=== PATIENT | male | born 1955 | race Caucasian/White ===

== ENCOUNTER 2018-08-26 11:02 | Day surgery (SDC) | payer BC ==
[~2018-08-26] VITALS: Ht 167.6 cm; Wt 79.8 kg
[2018-08-26] VITALS (9 sets, daily range): BP systolic 109–152; BP diastolic 71–88
[~2018-08-26 11:02] MED LIST: ceFAZolin sod 1 GM in NS 55 ML IVPB ONE
[2018-08-26] MEDS ORDERED: TAMSULOSIN HCL0.4 MG ORAL (12:00)
[2018-08-26] MEDS ORDERED: NORCO 5-325 TA1 EACH ORAL (12:01)
--- NOTE | 2018-08-26 12:53 | Pre-Procedure Note/Attestation ---
Pre-Procedure Note/Attestation Complete Prior to Procedure Planned Procedure: right Procedure Narrative: eswl rirs right cystolytholopaxy Indications for Procedure Pre-Operative Diagnosis: right ureteral stone and bladder stones Attestation I attest that I discussed the nature of the procedure; its benefits; risks and complications; and alternatives (and the risks and benefits of such alternatives ), prior to the procedure, with the patient (or the patient's legal medical service representative). I attest that, if there was a reasonable possibility of needing a blood transfusion, the patient (or the patient's legal medical service representative) was given the [facility] standardized written summary, pursuant to the [place] Blood Safety Act ([place] Health and Safety Code # 1645, as amended). I attest that I re-evaluated the patient just prior to the surgery and that there has been no change in the patient's H&P, except as documented below: Baljit Boggs MD Aug 26, 2018 12:53
[2018-08-26] MEDS ORDERED: NS Irrig 1000ml ONE (13:00)
[2018-08-26] MEDS ORDERED: Sterile Water For Irrig 2000ml IRRIG ONE (13:00)
[2018-08-26] MEDS ORDERED: Sterile Water Irrig 1000ml IRRIG ONE (13:00)
[2018-08-26] MEDS ORDERED: LR 1000ml ONE (13:00)
[2018-08-26] MEDS ORDERED: Propofol 200mg/20ml IV ONE (13:00)
[2018-08-26] MEDS ORDERED: Midazolam 2mg/2ml Inj ONE (13:10)
[2018-08-26] MEDS ORDERED: fentaNYL 100 mcg/2 mL IV ONE (13:10)
[2018-08-26] MEDS ORDERED: cefOXitin 1gm Inj ONE (13:27)
[2018-08-26] MEDS ORDERED: Iothalamate Meglumine 60% 30ML INJ ONE (13:27)
[2018-08-26] MEDS ORDERED: NS Irrig 4000ml IRRIG ONE (14:14)
[2018-08-26] MEDS ORDERED: LR 1000ml 1,000 ML IVLG SCH (14:19)
--- NOTE | 2018-08-26 14:19 | Anethesia Preoperative Eval ---
Anesthesia Pre-op PMH/ROS General Date of Evaluation: Aug 26, 2018 Time of Evaluation: 13:20 Anesthesiologist: Kimi ASA Score: ASA 2 Mallampati Score Class I : Soft palate, uvula, fauces, pillars visible Class II: Soft palate, uvula, fauces visible Class III: Soft palate, base of uvula visible Class IV: Only hard plate visible Mallampati Classification: Class II Surgeon: Flakita Diagnosis: Kidney and bladder stones Surgical Procedure: ECWL and laser lithotrypsy Anesthesia History: none Family History: no anesthesia problems Allergies: Coded Allergies: No Known Allergies (Unverified , 08/25/18) Medications: see eMAR Past Medical History Cardiovascular: Reports: HTN - borderline; Denies: CAD, [place], valve dz, arrhythmia, other Pulmonary: Denies: asthma, COPD, ERIS, other Gastrointestinal/Genitourinary: Reports: GERD, CRI - Cr.1,4, other - kidney stones BPH; Denies: ESRD Neurologic/Psychiatric: Reports: depression/anxiety; Denies: dementia, CVA, TIA, other Endocrine: Reports: DM - borderline; Denies: hypothyroidism, steroids, other HEENT: Reports: cataract (L), cataract (R) - s/p Sx Hematology/Immune: Reports: anemia - mild Musculoskeletal/Integumentary: Denies: OA, RA, DJD, DDD, edema, other PMH Narrative: as above PSxH Narrative: ESWL, appendectomy Anesthesia Pre-op Phys. Exam Physician Exam Last Vital Signs Date Time Temp Pulse Resp B/P (MAP) Pulse Ox O2 Delivery O2 Flow Rate FiO2 08/26/18 12:18 Room Air 08/26/18 12:09 99.0 66 20 133/80 (97) 97 99.0 Constitutional: NAD Neurologic: CN 2-12 intact Cardiovascular: RRR, no M/R/G Respiratory: CTA Gastrointestinal: S/NT/ND Airway Exam Mallampati Score: Class II MO: limited Neck: stiff ROM: limited Teeth: missing Dentures: no upper, no lower Anesthesia Pre-op A/P Labs see chart Studies Pre-op Studies: EKG - SR Risk Assessment & Plan Assessment: ASA 2 Plan: GA with LMA Status Change Before Surgery: No Pre-Antibiotics Drug: Cefoxitin 1 gr. Given Within 1 Hr of Incision: Yes Time Given: 14:04 Mitch Bolden MD Aug 26, 2018 14:19
[2018-08-26] MEDS ORDERED: DiphenhydrAMINE 50mg/ml Inj IVP PRN (14:30)
[2018-08-26] MEDS ORDERED: Meperidine 50mg/ml Inj(FOR RIGORS ONLY) IV PRN (14:30)
[2018-08-26] MEDS ORDERED: Ketorolac 30mg Inj IV PRN (14:30)
[2018-08-26] MEDS ORDERED: fentaNYL 100 mcg/2 mL IV PRN (14:30)
--- NOTE | 2018-08-26 14:42 | Brief Operative Note ---
Immediate Post Operative Note Operative Note Pre-op Diagnosis: right ureteral stone and bladder stones Procedure: ESWL RIRS right Cystolopaxy Post-op Diagnosis: same Surgeon: ken boggs Anesthesia: general Specimen: yes Complications: none Condition: stable Fluids: 1000 Estimated Blood Loss: minimal Implant(s) used?: No Baljit Boggs MD Aug 26, 2018 14:41
[2018-08-26] MEDS ORDERED: Tylenol #3 tab (300mg/30mg) ORAL PRN (14:45)
[2018-08-26] MEDS ORDERED: Norco 5mg/325mg tab ORAL PRN (14:45)
[2018-08-26] MEDS ORDERED: D5 1/2NS 1,000 ML IV SCH (14:45)
[2018-08-26] MEDS ORDERED: HYDROmorphone 1mg/ml Carpuject SUBQ PRN (14:45)
--- NOTE | 2018-08-26 14:58 | Immediate Post-Op Evaluation ---
Immediate Post-Op Evalulation Immediate Post-Op Evalulation Procedure: Laser lithotrypsy of L kidney and bladder stones stent placement Date of Evaluation: Aug 26, 2018 Time of Evaluation: 14:57 IV Fluids: 1200 Blood Products: NONE Estimated Blood Loss: min Urinary Output: n/a Blood Pressure Systolic: 107 Blood Pressure Diastolic: 72 Pulse Rate: 74 Respiratory Rate: 20 O2 Sat by Pulse Oximetry: 98 Temperature (Fahrenheit): 98.6 Pain Score (1-10): 2 Nausea: No Vomiting: No Complications none Patient Status: reacts, patent, none Hydration Status: adequate Mitch Bolden MD Aug 26, 2018 14:58
--- NOTE | 2018-08-26 15:54 | 48 Hour Post Anesthesia Eval ---
Post Anesthesia Evaluation Procedure: Laser lithotrypsy of L kidney and bladder stones, stent placement Date of Evaluation: Aug 26, 2018 Time of Evaluation: 15:53 Blood Pressure Systolic: 136 0: 72 Pulse Rate: 68 Respiratory Rate: 20 Temperature (Fahrenheit): 97.5 O2 Sat by Pulse Oximetry: 98 Airway: patent Nausea: No Vomiting: No Pain Intensity: 1 Hydration Status: adequate Cardiopulmonary Status: stable Mental Status/LOC: patient returned to baseline Follow-up Care/Observations: n/a Post-Anesthesia Complications: none Follow-up care needed: ready to discharge Mitch Bolden MD Aug 26, 2018 15:54
--- NOTE | 2018-09-01 03:45 | Operative Note - Dictated ---
DATE OF OPERATION: 08/26/2018 PREOPERATIVE DIAGNOSIS: Multiple bladder stones and right ureteral stone. POSTOPERATIVE DIAGNOSIS: Multiple bladder stones and right ureteral stone. OPERATIONS: 1. Cystolitholapaxy with laser. 2. Retrograde intrarenal surgery combined with extracorporeal shock wave lithotripsy of the right mid ureteral stone. 3. Double-J stent placement. OPERATED BY: Baljit Boggs M.D. ANESTHESIA: General. FINDINGS: Multiple bladder stones and mid right ureteral stone. INDICATIONS FOR SURGERY: The patient had hematuria and flank pain with severe hydronephrosis. He was found to have multiple bladder stones as well as mid right ureteral stone. Treatment options were explained to him in great length including all potential complications and he signed the consent. DESCRIPTION OF PROCEDURE: He was brought to the operating room, placed in lithotomy position, and prepped and draped in the standard fashion. Under general anesthesia, cystoscope was introduced into the bladder. Multiple stones from 2 to 3 cm each were treated with 1000 micron laser fiber, the stones were fragmented into small pieces and evacuated with the [employer] evacuator. After bladder was completely cleaned, the ureteroscope was introduced into the right ureter and carried all the way to the mid ureter where a stone was found. Using a 260 micron fiber, the stone was fragmented into small pieces and then removed for pathologic examination. Further inspection of the kidney showed no evidence of residual stones. A double-J stent 24 x 6-[place] was placed and left indwelling. The patient tolerated the procedure well. Degroot catheter was replaced. The patient received intravenous antibiotics. Sponge count and instrument count was correct. Baljit Boggs M.D. DR: KATIE JOB#: [id number] CC:
== END 2018-08-26 16:20 | disposition home or self-care (01) ==
LOC: SUR 11:02
DX: N21.0 Calculus in bladder (principal); N20.1 Calculus of ureter; E11.22 Type 2 diabetes mellitus with diabetic chronic kidney disease; I12.9 Hypertensive chronic kidney disease with stage 1 through stage 4 chronic kidney disease, or unspecified chronic kidney disease; N18.9 Chronic kidney disease, unspecified; N40.0 Benign prostatic hyperplasia without lower urinary tract symptoms; K21.9 Gastro-esophageal reflux disease without esophagitis; F32.9 Major depressive disorder, single episode, unspecified; F41.9 Anxiety disorder, unspecified; D64.9 Anemia, unspecified; Z87.442 Personal history of urinary calculi
CPT/HCPCS: 52317; 52356; J0694; J1940; J2250; J2704; J3010; Q9961

== ENCOUNTER 2019-05-19 08:41 | Inpatient (IN) | payer BC, MEDICARE ==
[2019-05-19] VITALS (12 sets, daily range): BP systolic 133–176; BP diastolic 74–97
[~2019-05-19] VITALS: Ht 167.6 cm; Wt 84.8 kg
[~2019-05-19 08:41] MED LIST changes: +NORCO 5-325 TA1 EACH ORAL; +TAMSULOSIN HCL0.4 MG ORAL
[2019-05-19] MEDS ORDERED: LR 1000ml 1,000 ML IVLG SCH (09:57)
--- NOTE | 2019-05-19 09:57 | Anethesia Preoperative Eval ---
Anesthesia Pre-op PMH/ROS General Date of Evaluation: May 19, 2019 Anesthesiologist: Caleb ASA Score: ASA 2 Mallampati Score Class I : Soft palate, uvula, fauces, pillars visible Class II: Soft palate, uvula, fauces visible Class III: Soft palate, base of uvula visible Class IV: Only hard plate visible Mallampati Classification: Class II Surgeon: Celio Diagnosis: BPH Surgical Procedure: TURP Anesthesia History: none Family History: no anesthesia problems Allergies: Coded Allergies: No Known Allergies (Unverified , 08/25/18) Medications: see eMAR Patient NPO?: Yes NPO Date: May 18, 2019 NPO Time: 1900 Past Medical History Cardiovascular: Denies: HTN, CAD, [place], valve dz, arrhythmia, other Pulmonary: Denies: asthma, COPD, ERIS, other Gastrointestinal/Genitourinary: Reports: other - BPH; Denies: GERD, CRI, ESRD Neurologic/Psychiatric: Denies: dementia, CVA, depression/anxiety, TIA, other Endocrine: Denies: DM, hypothyroidism, steroids, other HEENT: Denies: cataract (L), cataract (R), glaucoma, [place] (L), [place] (R), other Hematology/Immune: Denies: anemia, DVT, bleeding disorder, other Musculoskeletal/Integumentary: Denies: OA, RA, DJD, DDD, edema, other PSxH Narrative: septoplasty, T&A, lap appy, cystoscoy, left knee sx, right cataract Anesthesia Pre-op Phys. Exam Physician Exam Last Vital Signs Date Time Temp Pulse Resp B/P (MAP) Pulse Ox O2 Delivery O2 Flow Rate FiO2 05/19/19 09:52 98.2 62 18 144/87 (106) 97 Constitutional: NAD Cardiovascular: RRR Respiratory: CTA Airway Exam Mallampati Score: Class II MO: full ROM: full Anesthesia Pre-op A/P Labs see chart Studies Pre-op Studies: EKG - sr Risk Assessment & Plan Assessment: ASA II Plan: GA Status Change Before Surgery: No Pre-Antibiotics Drug: Juju Fair MD May 19, 2019 09:57
[2019-05-19] MEDS ORDERED: LORazepam Inj 2mg/ml 1ml IV PRN (10:00)
[2019-05-19] MEDS ORDERED: Hydromorphone 0.5mg/0.5ml inj IVP PRN (10:00)
[2019-05-19] MEDS ORDERED: Midazolam 2mg/2ml Inj IVP PRN (10:00)
[2019-05-19] MEDS ORDERED: Ketorolac 30mg Inj IV PRN (10:00)
[2019-05-19] MEDS ORDERED: fentaNYL 100 mcg/2 mL IV PRN (10:00)
[2019-05-19] MEDS ORDERED: DiphenhydrAMINE 50mg/ml Inj IVP PRN (10:00)
[2019-05-19] MEDS ORDERED: Metoclopramide 10mg/2ml Inj IVP PRN (10:00)
[2019-05-19] MEDS ORDERED: Sterile Water Irrig 1000ml IRRIG ONE (10:30)
[2019-05-19] MEDS ORDERED: NS Irrig 1000ml ONE (10:30)
[2019-05-19] MEDS ORDERED: LR 1000ml ONE (10:30)
--- NOTE | 2019-05-19 10:32 | Pre-Procedure Note/Attestation ---
Pre-Procedure Note/Attestation Complete Prior to Procedure Planned Procedure: not applicable Procedure Narrative: TURP CYstolopaxy Indications for Procedure Pre-Operative Diagnosis: bladder stones BPH Attestation I attest that I discussed the nature of the procedure; its benefits; risks and complications; and alternatives (and the risks and benefits of such alternatives ), prior to the procedure, with the patient (or the patient's legal parts sales representative). I attest that, if there was a reasonable possibility of needing a blood transfusion, the patient (or the patient's legal parts sales representative) was given the [facility] standardized written summary, pursuant to the [place] Blood Safety Act ([place] Health and Safety Code # 1645, as amended). I attest that I re-evaluated the patient just prior to the surgery and that there has been no change in the patient's H&P, except as documented below: Baljit Boggs MD May 19, 2019 10:32
[2019-05-19] MEDS ORDERED: Vit D (10:38)
[2019-05-19] MEDS ORDERED: Midazolam 2mg/2ml Inj ONE (10:49)
[2019-05-19] MEDS ORDERED: fentaNYL 100 mcg/2 mL IV ONE (10:49)
[2019-05-19] MEDS ORDERED: Lidocaine 1% MPF 10mg/ml 5ml ONE (10:49)
[2019-05-19] MEDS ORDERED: Propofol 200mg/20ml IV ONE (10:49)
[2019-05-19] MEDS ORDERED: NS Irrig 4000ml IRRIG ONE ×6 (10:55→12:00)
[2019-05-19] MEDS ORDERED: HYDROmorphone 1mg/ml Carpuject IVP PRN (12:45)
[2019-05-19] MEDS ORDERED: HYDROcodone/Acetamin 5/325 tab ORAL PRN (12:45)
--- NOTE | 2019-05-19 12:47 | Brief Operative Note ---
Immediate Post Operative Note Operative Note Pre-op Diagnosis: bladder stones BPH Procedure: TURP cystolopaxy Post-op Diagnosis: same Post-op Diagnosis: same as pre-op Surgeon: Jarred Boggs Anesthesia: general Specimen: yes Complications: none Fluids: 1000 Estimated Blood Loss: minimal Implant(s) used?: No Baljit Boggs MD May 19, 2019 12:47
--- NOTE | 2019-05-19 12:52 | Immediate Post-Op Evaluation ---
Immediate Post-Op Evalulation Immediate Post-Op Evalulation Procedure: TURP and cystolitholopexy Date of Evaluation: May 19, 2019 Time of Evaluation: 12:54 IV Fluids: 800 Blood Products: 0 Estimated Blood Loss: 50 Urinary Output: 0 Blood Pressure Systolic: 131 Blood Pressure Diastolic: 81 Pulse Rate: 60 Respiratory Rate: 16 O2 Sat by Pulse Oximetry: 100 Temperature (Fahrenheit): 97 Pain Score (1-10): 0 Nausea: No Vomiting: No Complications 0 Patient Status: awake, reacts, patent, none Hydration Status: adequate Drug: Ancef 2g Given Within 1 Hr of Incision: Yes Juju Glynn MD May 19, 2019 12:52
[2019-05-19 14:07] LABS: BASOPHILS % (AUTO) 0.8 % (0.0-2.0); EOSINOPHILS % (AUTO) 1.5 % (0.0-3.0); HEMATOCRIT 36.8 % (42.0-52.0); HEMOGLOBIN 12.6 G/DL (14.2-18.0); LYMPHOCYTES % (AUTO) 23.9 % (20.0-45.0); MEAN CORPUSCULAR VOLUME 91 FL (80-99); MONOCYTES % (AUTO) 7.5 % (1.0-10.0); NEUTROPHILS % (AUTO) 66.4 % (45.0-75.0); PLATELET COUNT 183 K/UL (150-450); RED BLOOD COUNT 4.05 M/UL (4.70-6.10); RED CELL DISTRIBUTION WIDTH 11.3 % (11.6-14.8); WHITE BLOOD COUNT 10.6 K/UL (4.8-10.8)
--- NOTE | 2019-05-19 14:10 | NUR ---
NURSE NOTES: REC'D FROM PACU SP TURP,CYSTOLITHOLIPAXY. AWKE A/LAERT. /VS TAKEN. NO C/O PAIN. WITH HUI CATHETER WITH CONTINUOUS BLADDER IRRIGATION. OUTPUT PINK COLOR . NO CLOTS. IN NO APPARENT DISTRESS.
[2019-05-19 14:17] LABS: ANION GAP 11 mmol/L (5-15); BLOOD UREA NITROGEN 13 mg/dL (7-18); CALCIUM 8.4 MG/DL (8.5-10.1); CARBON DIOXIDE 26 MMOL/L (21-32); CHLORIDE 105 MMOL/L (98-107); CREATININE 1.1 MG/DL (0.55-1.30); POTASSIUM 3.9 MMOL/L (3.5-5.1); SODIUM 142 MMOL/L (136-145)
[2019-05-19] MEDS: D5 1/2NS w/KCl 20mEq 1,000 ML IV SCH (15:30)
[2019-05-19] MEDS: Docusate 100mg cap ORAL SCH ×2 (17:21→19:35)
[2019-05-19] MEDS ORDERED: Tubing IV Secondary IV ONE (17:45)
--- NOTE | 2019-05-19 18:59 | NUR ---
NURSE NOTES: QUIET IN BED. STILL SLIGHTLY NAUSEATED, IN NO ACUTE DISTRESS.
--- NOTE | 2019-05-19 19:36 | NUR ---
HAND-OFF: Report given TatyanaKaterin URIOSTEGUI RN.
--- NOTE | 2019-05-19 20:00 | NUR ---
NURSE NOTES: Received a report from ARTURO Burger. Pt is awake and alert. Breathing is even and non labored. Lung sound is clear. No acute distress noted. No pain noted at this time. On bladder irrigation with 4L NS vis 24Fr. knott catheter and pinkish urine drained. Nausea sense decreased and had 1 cup of Jello. Leave call light within reach. Bed is locked and lowest position. Will continue to monitor.
[2019-05-19] MEDS ORDERED: Tamsulosin 0.4mg cap ORAL SCH (21:00)
[2019-05-20] VITALS: BP 116/67
[2019-05-20] MEDS: D5 1/2NS w/KCl 20mEq 1,000 ML IV SCH ×3 (01:35→11:44)
--- NOTE | 2019-05-20 02:30 | Consultation ---
DATE OF CONSULTATION: 05/19/2019 INTERNAL MEDICINE CONSULTATION CONSULTING PHYSICIAN: Trent Bolanos M.D. HISTORY OF PRESENT ILLNESS: This is a 64-year-old male who has undergone prostatectomy by Dr. Baljit Boggs this afternoon. At this point, he is feeling better. He has a Degroot catheter in place and hematuria was noted. He is also nauseous this morning. The patient has a past history notable for prostatic problems, for which he has today undergone surgery. PAST MEDICAL HISTORY: Notable for BPH and nephrolithiasis. PREVIOUS SURGERIES: Appendectomy, cataract surgery, and previous urolithiasis. CURRENT MEDICATIONS: Reviewed and reconciled in the chart. ALLERGIES: None. REVIEW OF SYSTEMS: Denies any headaches, hematemesis, melena, hematochezia . PHYSICAL EXAMINATION: HEENT: Unremarkable. LUNGS: Clear breath sounds bilaterally. ABDOMEN: Soft. EXTREMITIES: There is no edema. NEUROLOGIC: Nonfocal. LABORATORY DATA: Laboratory testing currently is unremarkable. IMPRESSION: 1. Status post TURP. 2. Previous appendectomy. 3. History of urolithiasis. DISCUSSION: Admit to the hospital. We will leave Degroot in place. . DVT prophylaxis. Pain control. Antiemetics. Discharge planning in the next 24 to 48 hours depending on status of hematuria. We will follow carefully. Trent Bolanos M.D. DR: BRANDY JOB#: [id number] CC:
[2019-05-20 04:00] VITALS: BP 117/68
[2019-05-20 06:16] LABS: BASOPHILS % (AUTO) 0.3 % (0.0-2.0); EOSINOPHILS % (AUTO) 0.1 % (0.0-3.0); HEMATOCRIT 36.4 % (42.0-52.0); HEMOGLOBIN 12.6 G/DL (14.2-18.0); LYMPHOCYTES % (AUTO) 14.2 % (20.0-45.0); MEAN CORPUSCULAR VOLUME 90 FL (80-99); MONOCYTES % (AUTO) 8.9 % (1.0-10.0); NEUTROPHILS % (AUTO) 76.5 % (45.0-75.0); PLATELET COUNT 183 K/UL (150-450); RED BLOOD COUNT 4.05 M/UL (4.70-6.10); RED CELL DISTRIBUTION WIDTH 11.2 % (11.6-14.8); WHITE BLOOD COUNT 11.2 K/UL (4.8-10.8)
[2019-05-20 06:36] LABS: ANION GAP 9 mmol/L (5-15); BLOOD UREA NITROGEN 12 mg/dL (7-18); CALCIUM 8.5 MG/DL (8.5-10.1); CARBON DIOXIDE 26 MMOL/L (21-32); CHLORIDE 105 MMOL/L (98-107); CREATININE 1.1 MG/DL (0.55-1.30); POTASSIUM 3.9 MMOL/L (3.5-5.1); SODIUM 140 MMOL/L (136-145)
--- NOTE | 2019-05-20 06:59 | NUR ---
HAND-OFF: Report given to ARTURO Martin. Pt in stable condition.
--- NOTE | 2019-05-20 07:14 | NUR ---
NURSE NOTES: AWAKE/ALERT. NO C/O PAIN. F/C PATENT DRAINING PINKISH URINE. NO CLOTS WITH CONTINOUS BLADDER IRRIGATION.IN NO DISTRESS.
[2019-05-20 08:00] VITALS: BP 116/68
[2019-05-20] MEDS: Docusate 100mg cap ORAL SCH (08:30)
--- NOTE | 2019-05-20 08:47 | NUR ---
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 BLADDER STONES SI:ENLARGED PROSTATE . BLADDER STONES VS:BP 144/87, P 62, T 98.2, RR 18, SpO2 97 RBC 4.05, H&H 12.6/36.8 IS:TURP CYSTOLITHECTOMY CEFAZOLIN 55ml IVPB FLOMAX 0.4mg ZOFRAN 4mg IVP DILAUDID 0.5mg IVP MED/SURG STATUS DCP: RETURN HOME
--- NOTE | 2019-05-20 08:57 | Nephrology Progress Note ---
Assessment/Plan Assessment/Plan: A/P 1) S/P Turp - 3 way BI with much improved hematuria - DC tomorrow once cleared by Urology 2) DVT prophylaxsis with SCDs Subjective Date patient seen: May 20, 2019 Time patient seen: 08:54 ROS Limited/Unobtainable: No Allergies: Coded Allergies: No Known Allergies (Unverified , 08/25/18) Subjective Patient resting. No complaints Objective Last 24 Hour Vital Signs Date Time Temp Pulse Resp B/P (MAP) Pulse Ox O2 Delivery O2 Flow Rate FiO2 05/20/19 08:24 Room Air 05/20/19 08:00 99.6 82 18 116/68 (84) 95 05/20/19 04:00 98.9 69 18 117/68 (84) 96 05/20/19 00:00 98.1 71 18 116/67 (83) 99 05/19/19 21:00 Nasal Cannula 2.0 05/19/19 20:00 98.2 62 18 137/84 (101) 97 05/19/19 15:06 97.2 65 18 144/81 (102) 97 05/19/19 14:10 97.4 60 20 141/81 (101) 98 05/19/19 14:10 Nasal Cannula 3.0 05/19/19 13:58 97.4 05/19/19 13:45 97.4 59 16 156/84 100 Nasal Cannula 2 05/19/19 13:40 60 15 163/85 100 Nasal Cannula 3 05/19/19 13:30 57 13 164/85 100 Nasal Cannula 3 05/19/19 13:20 56 16 165/92 100 Nasal Cannula 3 05/19/19 13:10 56 13 173/97 100 Nasal Cannula 3 05/19/19 13:00 59 15 176/95 100 Simple Mask 6 05/19/19 12:55 58 12 141/80 100 Simple Mask 6 05/19/19 12:52 60 16 100 05/19/19 12:49 97.4 62 14 133/74 100 Simple Mask 6 05/19/19 10:26 Room Air 05/19/19 09:52 98.2 62 18 144/87 (106) 97 Intake and Output 05/19/19 05/20/19 19:00 07:00 Intake Total 1700 ml 1220 ml Output Total 580 ml 1300 ml Balance 1120 ml -80 ml Intake Oral 100 ml 120 ml IV Total 1600 ml 1100 ml Output Urine Total 530 ml 1300 ml Estimated Blood Loss 50 ml Laboratory Tests 05/19/19 13:50: White Blood Count 10.6, Red Blood Count 4.05L, Hemoglobin 12.6L, Hematocrit 36.8L, Mean Corpuscular Volume 91, Mean Corpuscular Hemoglobin 31.0, Mean Corpuscular Hemoglobin Concent 34.2, Red Cell Distribution Width 11.3L, Platelet Count 183, Mean Platelet Volume 8.3, Neutrophils (%) (Auto) 66.4, Lymphocytes (%) (Auto) 23.9, Monocytes (%) (Auto) 7.5, Eosinophils (%) (Auto) 1.5, Basophils (%) (Auto) 0.8, Sodium Level 142, Potassium Level 3.9, Chloride Level 105, Carbon Dioxide Level 26, Anion Gap 11, Blood Urea Nitrogen 13, Creatinine 1.1, Estimat Glomerular Filtration Rate > 60, Glucose Level 126H, Calcium Level 8.4L 05/20/19 05:40: White Blood Count 11.2H, Red Blood Count 4.05L, Hemoglobin 12.6L, Hematocrit 36.4L, Mean Corpuscular Volume 90, Mean Corpuscular Hemoglobin 31.2H, Mean Corpuscular Hemoglobin Concent 34.7, Red Cell Distribution Width 11.2L, Platelet Count 183, Mean Platelet Volume 8.8, Neutrophils (%) (Auto) 76.5H, Lymphocytes (%) (Auto) 14.2L, Monocytes (%) (Auto) 8.9, Eosinophils (%) (Auto) 0.1, Basophils (%) (Auto) 0.3, Sodium Level 140, Potassium Level 3.9, Chloride Level 105, Carbon Dioxide Level 26, Anion Gap 9, Blood Urea Nitrogen 12, Creatinine 1.1, Estimat Glomerular Filtration Rate > 60, Glucose Level 137H, Calcium Level 8.5 Height (Feet): 5 Height (Inches): 6.00 Weight (Pounds): 187 General Appearance: no apparent distress EENT: normal ENT inspection Neck: normal alignment, supple Cardiovascular: normal rate, regular rhythm Respiratory/Chest: lungs clear, normal breath sounds Abdomen: non tender, soft Edema: no edema noted Arm (L), no edema noted Arm (R), no edema noted Leg (L), no edema noted Leg (R), no edema noted Pedal (L), no edema noted Pedal (R), no edema noted Generalized Domingo Morales MD May 20, 2019 08:57
--- NOTE | 2019-05-20 09:15 | NUR ---
PT EVALUATION NOTE Patient seen for initial evaluation, see complete evaluation for details. Patient presents with generalized weakness and discomfort s/p TURP. Patient requires SBA/CGA for ambulation without an AD. Patient will benefit from skilled inpatient PT intervention to address strength, safety and functional mobility including stair training as patient has one flight of stairs to access apartment. Anticipate discharge home with family assistance once medically cleared by MD. Do not anticipate any DME needs at this time. Addendum: 05/20/19 at 1209 by BRIAN LUIS PT Amended: Links added.
--- NOTE | 2019-05-20 10:48 | NUR ---
*-* NO INSURANCE INFORMATION UNABLE TO SEND CLINICALS OR REVIEWS *-*
[2019-05-20 12:00] VITALS: BP 133/74
--- NOTE | 2019-05-20 15:55 | 48 Hour Post Anesthesia Eval ---
Post Anesthesia Evaluation Procedure: TURP and cystolitholopexy Date of Evaluation: May 20, 2019 Time of Evaluation: 15:54 Blood Pressure Systolic: 118 0: 74 Pulse Rate: 68 Respiratory Rate: 22 Temperature (Fahrenheit): 97.6 O2 Sat by Pulse Oximetry: 98 Airway: patent Nausea: No Vomiting: No Pain Intensity: 2 Hydration Status: adequate Cardiopulmonary Status: stable Mental Status/LOC: patient returned to baseline Follow-up Care/Observations: n/a Post-Anesthesia Complications: none Follow-up care needed: ready to discharge Mitch Bolden MD May 20, 2019 15:55
[2019-05-20 16:00] VITALS: BP 149/91
--- NOTE | 2019-05-20 16:30 | NUR ---
NURSE NOTES: BLADDER IRRIGATION DC'D ORDERED. HUI CONNECTED TO LEG BAG, PT INSTRUCTED HOW TO EMPTY LEG BAG.
[2019-05-20] MEDS ORDERED: NS Irrig 4000ml IRRIG ONE (16:57)
--- NOTE | 2019-05-20 16:58 | NUR ---
NURSE NOTES: DISCHARGED HOME PER WHEELCHAIR ACCPD BY IN STABLE CONDITION. DC INSTRUCTIONS GIVEN.
--- NOTE | 2019-05-21 08:30 | Discharge Summary ---
Discharge Summary Discharge Summary _ DATE OF ADMISSION: 05/19/2019 DATE OF DISCHARGE: 05/20/2019 DISCHARGED BY: Dr. Baljit Boggs CONSULTS: Dr. Nikita Bolanos BRIEF HOSPITAL COURSE: Patient is a 64-year-old male, who was diagnosed with bladder stones and BPH. Patient was admitted on 05/19/2019 and underwent TURP with cystolithopexy. Patient tolerated the procedure well. There were no immediate postop complications. Post-operatively, patient was admitted for post-op care. IV hydration was continued. He was given SCDs for DVT prophylaxis and was encouraged use of incentive spirometer. Pain management was provided. CBI was continued and urine output was monitored. Diet was advanced. He was given physical therapy. Bladder irrigation was discontinued. Degroot was connected to a leg bag. Patient was discharged home. FINAL DIAGNOSES: BPH and bladder stones Status post TURP with cystolithopaxy DISCHARGE DISPOSITION: Patient was discharged home. DISCHARGE MEDICATIONS: Refer to medication list. DISCHARGE INSTRUCTIONS: Postop instructions given. Follow up in a week. I have been assigned to complete a discharge summary on this account, I was not involved with the patient management.--TAQUERIA Snell Jacqueline Robles NP May 21, 2019 08:30
--- NOTE | 2019-05-24 16:30 | Operative Note - Dictated ---
DATE OF OPERATION: 05/19/2019 PREOPERATIVE DIAGNOSES: Bladder stones and BPH. POSTOPERATIVE DIAGNOSES: Bladder stones and BPH. OPERATION: Cystolitholapaxy of multiple large bladder stones, transurethral resection of the prostate. AIRPLANE RENTAL CLERK: Baljit Boggs M.D. ANESTHESIA: General. FINDINGS: Multiple large stones in the bladder and BPH. INDICATIONS FOR SURGERY: The patient had multiple episodes of renal stones and recurrent UTIs, found to have multiple bladder stones as well as BPH. Treatment options were explained to him in great length including all potential complications. He signed the consent. PROCEDURE IN DETAIL: He was brought to the operating room, placed in the lithotomy position, prepped and draped in standard fashion. Under general anesthesia, cystoscope was introduced into the bladder. Using 1000 micron fiber, over the course of minutes, stones were fragmented into small pieces and removed with . After the bladder was empty of stones, transurethral resection with bipolar TURP was performed in standard fashion. Verumontanum was carefully preserved. All the chips were evacuated for pathological examination. A 24 three-way Degroot catheter was placed in the left indwelling. Sponge count and instrument count was correct. The patient tolerated the procedure well. No evidence of complications. Baljit Boggs M.D. DR: JORDAN JOB#: [id number] CC:
== END 2019-05-20 16:58 | disposition home or self-care (01) | DRG 714 ==
LOC: SDSOVERFLO 08:56 → 3E 14:11
DX: N40.0 Benign prostatic hyperplasia without lower urinary tract symptoms (principal); N21.0 Calculus in bladder; R31.9 Hematuria, unspecified
CPT/HCPCS: 36415; 80048; 85025; 86850; 86900; 86901; 87081; 94003; 94150; J2250; J2405; J2765

== ENCOUNTER 2019-06-08 18:48 | Inpatient (IN) | payer BC, MEDICARE ==
[~2019-06-08] VITALS: Ht 167.6 cm; Wt 83.5 kg
[~2019-06-08 18:48] MED LIST changes: +Vit D; -ceFAZolin sod 1 GM in NS 55 ML IVPB ONE
[2019-06-08] MEDS ORDERED: BENICAR20 MG ORAL (19:00)
[2019-06-08 19:06] VITALS: BP 139/81
--- NOTE | 2019-06-08 19:10 | NUR ---
ED Nurse Note: Patient walked in to ER c/o chest pain 06/09. Per patient he lifted heavy bag (20kg), and after that he feels different. Patient presented with nonlabored breathing, O2 sat 98% on RA. Stated that took Benicar 20 mg. AAO x4, VSS at this time, skin is dry warm to touch.
--- NOTE | 2019-06-08 19:12 | NUR ---
ED Nurse Note: Patient stated that had a prostate surgery at May 19, still passing blood.
[2019-06-08 19:31] LABS: BASOPHILS % (AUTO) 0.5 % (0.0-2.0); EOSINOPHILS % (AUTO) 0.4 % (0.0-3.0); HEMATOCRIT 39.5 % (42.0-52.0); HEMOGLOBIN 13.3 G/DL (14.2-18.0); LYMPHOCYTES % (AUTO) 12.1 % (20.0-45.0); MEAN CORPUSCULAR VOLUME 92 FL (80-99); MONOCYTES % (AUTO) 7.6 % (1.0-10.0); NEUTROPHILS % (AUTO) 79.4 % (45.0-75.0); PLATELET COUNT 238 K/UL (150-450); RED BLOOD COUNT 4.29 M/UL (4.70-6.10); RED CELL DISTRIBUTION WIDTH 10.8 % (11.6-14.8); WHITE BLOOD COUNT 14.5 K/UL (4.8-10.8)
--- NOTE | 2019-06-08 19:33 | Emergency Room Report ---
History of Present Illness General Chief Complaint: Chest Pain Source: Patient Present Illness HPI Patient reports having left sided upper chest pain this morning it woke him out of sleep at around 3:00 in the morning Heaviness and sharp rates the pain is 5 out of 10 Patient started to have some improvement however again while driving to work had increased pressure patient's blood pressure also had increased 168 systolic at home with a heart rate of 100 Denies any pleurisy denies any vomiting or diarrhea patient had a recent turp procedure by urology Allergies: Coded Allergies: No Known Allergies (Unverified , 08/25/18) Patient History Past Medical History: see triage record Pertinent Family History: none Reviewed Nursing Documentation: PMH: Agreed; PSxH: Agreed Nursing Documentation-PMH Hx Cardiac Problems: No Hx Cancer: No Hx Gastrointestinal Problems: Yes - kidney stones, prostate Hx Neurological Problems: No Review of Systems All Other Systems: negative except mentioned in HPI Physical Exam Vital Signs Date Time Temp Pulse Resp B/P (MAP) Pulse Ox O2 Delivery O2 Flow Rate FiO2 06/08/19 18:56 98.1 93 16 139/81 (100) 98 Room Air Sp02 EP Interpretation: reviewed, normal General Appearance: well appearing, no apparent distress Head: normocephalic, atraumatic Eyes: bilateral eye PERRL, bilateral eye EOMI ENT: hearing grossly normal, normal pharynx, TMs + canals normal, uvula midline Neck: full range of motion, supple, no meningismus, no bony tend Respiratory: lungs clear, normal breath sounds, no rhonchi, no respiratory distress, no retraction, no accessory muscle use Cardiovascular #1: normal peripheral pulses, regular rate, rhythm, no edema, no gallop, no JVD, no murmur Gastrointestinal: normal bowel sounds, non tender, soft, no mass, no organomegaly, non-distended, no guarding, no hernia, no pulsatile mass, no rebound Genitourinary: no CVA tenderness Musculoskeletal: normal inspection Neurologic: oriented x3, responsive, motor strength/tone normal, sensory intact Psychiatric: mood/affect normal Lymphatic: normal inspection, no adenopathy Medical Decision Making Diagnostic Impression: Primary Impression: ACS (acute coronary syndrome) ER Course Patient is a fairly complex patient with multiple differential to consideration including but not limited to cardiac cardiopulmonary and vascular emergencies Patient's blood work with cardiac enzymes are normal chest x-ray shows some left lower lobe atelectasis versus mildly elevated hemidiaphragm On repeat discussion patient reports some discomfort with inspiration and left- sided discomfort Therefore with the abnormal x-ray CT is obtained for further inpatient follow-up Patient saturating appropriately Afebrile and admitted for further inpatient care Labs Test 06/08/19 19:10 White Blood Count 14.5 K/UL (4.8-10.8) Red Blood Count 4.29 M/UL (4.70-6.10) Hemoglobin 13.3 G/DL (14.2-18.0) Hematocrit 39.5 % (42.0-52.0) Mean Corpuscular Volume 92 FL (80-99) Mean Corpuscular Hemoglobin 31.1 PG (27.0-31.0) Mean Corpuscular Hemoglobin Concent 33.7 G/DL (32.0-36.0) Red Cell Distribution Width 10.8 % (11.6-14.8) Platelet Count 238 K/UL (150-450) Mean Platelet Volume 7.7 FL (6.5-10.1) Neutrophils (%) (Auto) 79.4 % (45.0-75.0) Lymphocytes (%) (Auto) 12.1 % (20.0-45.0) Monocytes (%) (Auto) 7.6 % (1.0-10.0) Eosinophils (%) (Auto) 0.4 % (0.0-3.0) Basophils (%) (Auto) 0.5 % (0.0-2.0) Sodium Level 137 MMOL/L (136-145) Potassium Level 4.2 MMOL/L (3.5-5.1) Chloride Level 100 MMOL/L (98-107) Carbon Dioxide Level 28 MMOL/L (21-32) Anion Gap 9 mmol/L (5-15) Blood Urea Nitrogen 16 mg/dL (7-18) Creatinine 1.5 MG/DL (0.55-1.30) Estimat Glomerular Filtration Rate 47.0 mL/min (>60) Glucose Level 114 MG/DL (74-106) Calcium Level 9.0 MG/DL (8.5-10.1) Total Bilirubin 0.7 MG/DL (0.2-1.0) Aspartate Amino Transf (AST/SGOT) 17 U/L (15-37) Alanine Aminotransferase (ALT/SGPT) 18 U/L (12-78) Alkaline Phosphatase 99 U/L (46-116) Total Creatine Kinase 70 U/L (26-308) Creatine Kinase MB < 0.5 NG/ML (0.0-3.6) Creatine Kinase MB Relative Index 0.7 Troponin I 0.000 ng/mL (0.000-0.056) Pro-B-Type Natriuretic Peptide 88 pg/mL (0-125) Total Protein 7.5 G/DL (6.4-8.2) Albumin 3.9 G/DL (3.4-5.0) Globulin 3.6 g/dL Albumin/Globulin Ratio 1.1 (1.0-2.7) EKG Diagnostic Results Rate: normal Rhythm: NSR ST Segments: other Rhythm Strip Diag. Results EP Interpretation: yes Rate: 66 Rhythm: NSR, no PVC's, no ectopy Chest X-Ray Diagnostic Results Chest X-Ray Diagnostic Results : Chest X-Ray Ordered: Yes # of Views/Limited/Complete: 1 View Indication: Chest Pain EP Interpretation: Yes Interpretation: no consolidation, no pneumothorax, other - Small left lower lobe atelectasis Impression: Other - Small left lower lobe atelectasis mildly raised appearance of hemidiaphragm Electronically Signed by: Ernestina Cowart DO CT/MRI/US Diagnostic Results CT/MRI/US Diagnostic Results : Impression CT chest Impression: Left basilar atelectasis and possible infiltrate Trace bilateral pleural effusions Minimal right basilar atelectasis Bilateral small lung nodules, as described. If there is significant smoking history, recommend 6-12 months short interval follow-up Bilateral hydronephrosis versus parapelvic cysts, incompletely evaluated/ included. 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 Last Vital Signs Date Time Temp Pulse Resp B/P (MAP) Pulse Ox O2 Delivery O2 Flow Rate FiO2 06/08/19 19:06 98.1 16 139/81 98 Room Air 06/08/19 19:06 93 Status: improved Disposition: ADMITTED INPATIENT Condition: Serious Ernestina Cowart DO Jun 08, 2019 19:33
[2019-06-08 19:57] LABS: ANION GAP 9 mmol/L (5-15); BLOOD UREA NITROGEN 16 mg/dL (7-18); CARBON DIOXIDE 28 MMOL/L (21-32); CHLORIDE 100 MMOL/L (98-107); CREATININE 1.5 MG/DL (0.55-1.30); POTASSIUM 4.2 MMOL/L (3.5-5.1); SODIUM 137 MMOL/L (136-145)
[2019-06-08] MEDS ORDERED: Nitroglycerin 2% oint pkt TOPIC ONE (20:00)
[2019-06-08] MEDS ORDERED: Morphine Sulfate 4mg/ml Inj (IV USE ONLY) IVP ONE (20:00)
[2019-06-08 20:12] LABS: ALANINE AMINOTRANSFERASE 18 U/L (12-78); ALBUMIN 3.9 G/DL (3.4-5.0); ALBUMIN/GLOBULIN RATIO 1.1 (1.0-2.7); ALKALINE PHOSPHATASE 99 U/L (46-116); ASPARTATE AMINO TRANSFERASE 17 U/L (15-37); BILIRUBIN,TOTAL 0.7 MG/DL (0.2-1.0); CKMB < 0.5 NG/ML (0.0-3.6); CREATINE KINASE 70 U/L (26-308)
--- NOTE | 2019-06-08 20:13 | NUR ---
ED Nurse Note: Patient refused Morphine, stated that pain is not too bad. Zofran and Morphine were returned to the pyxes.
[2019-06-08 21:06] VITALS: BP 137/76
[2019-06-08] MEDS ORDERED: Ketorolac 30mg Inj IV ONE (21:15)
[2019-06-08] MEDS ORDERED: Albuterol/Ipratropium 3ml neb HHN PRN (21:45)
[2019-06-08] MEDS ORDERED: Miralax 17gm pkt ORAL PRN (21:45)
[2019-06-08] MEDS ORDERED: Nitroglycerin Subl 0.4mg tab SL PRN (21:45)
[2019-06-08] MEDS ORDERED: dilTIAZem HCl 25mg/5ml Inj IV PRN (21:45)
[2019-06-08] MEDS ORDERED: Morphine Sulfate 2mg/ml Inj(IV/IM USE ONLY) IVP PRN (21:45)
[2019-06-08] MEDS ORDERED: Enalaprilat 1.25mg/ml Inj IV PRN (21:45)
--- NOTE | 2019-06-08 22:00 | NUR ---
ED Nurse Note: Patient was admited to Tele for observation due to CP. Patient was transfered to the unit via gurney by A[facility]s protocol with all belongings. AAO x4, VSS at this time, skin is dry, warm to touch.
[2019-06-08 22:05] VITALS: BP 117/75
--- NOTE | 2019-06-08 22:05 | NUR ---
NURSE NOTES: Patient received from the ED via stretcher alert, oriented x4, breathing room air spontaneously, skin is intact and at his bedside. Patient verbalized pain in his left side of his chest but said that they already gave him something in the ER. environmental monitoring specialist is in place. Vital signs are WNL. IV line is in his left AC 20 gauge, dressing is dry, clean and intact. patient is keeping his phone but his will be taking his other belongings home. Fall and safety precautions maintained. Call pinto within patient's easy reach. Will continue to monitor patient.
[2019-06-09] VITALS: BP_SYST 105; BP_SYST 98; BP_DIAS 62; BP_DIAS 76
[2019-06-09 04:00] VITALS: BP 117/67
--- NOTE | 2019-06-09 07:21 | NUR ---
HAND-OFF: Report given to ARTURO Dave. No acute s/s of distress noted.
--- NOTE | 2019-06-09 07:57 | NUR ---
NURSE NOTES: Report received from TARA Rn. Received patient awake and alert. sitting up comfortably in the chair. no c/o pain or discomfort at this time. will continue to monitor.
[2019-06-09 08:00] VITALS: BP 104/67
[2019-06-09] MEDS: Aspirin Baby 81mg ORAL SCH (08:34)
[2019-06-09] MEDS: Heparin 5000 units/ml inj SUBQ SCH ×2 (08:35→20:59)
[2019-06-09 08:54] LABS: BASOPHILS % (AUTO) 0.8 % (0.0-2.0); EOSINOPHILS % (AUTO) 0.7 % (0.0-3.0); HEMATOCRIT 39.4 % (42.0-52.0); HEMOGLOBIN 13.5 G/DL (14.2-18.0); LYMPHOCYTES % (AUTO) 19.2 % (20.0-45.0); MEAN CORPUSCULAR VOLUME 92 FL (80-99); MONOCYTES % (AUTO) 7.9 % (1.0-10.0); NEUTROPHILS % (AUTO) 71.4 % (45.0-75.0); PLATELET COUNT 242 K/UL (150-450); RED BLOOD COUNT 4.29 M/UL (4.70-6.10); RED CELL DISTRIBUTION WIDTH 10.8 % (11.6-14.8)
--- NOTE | 2019-06-09 09:44 | Diagnostic Imaging Report ---
Clinical Indication: Left-sided upper chest pain, 5 out of 10, and venous and shortness, since this morning Technique: Spiral acquisitions obtained through the chest. No IV contrast utilized, reason not stated. Multiplanar reconstructions generated. Total dose length product 839.04 mGycm. CTDIvol(s) 24.1 mGy. Dose reduction achieved using automated exposure control Comparison: none Findings: There is trace right and small left pleural effusions. There is some atelectasis at the left lung base and possibly consolidation involving the lower lobe and inferior lingula. There is also minimal atelectasis at the right lung base. At least 2 small subpleural nodules, each measuring approximately 3 mm, are seen at the periphery of the inferior right upper lobe. A 5 mm nodule is seen in the right middle lobe, image 34 series 5. A 3 mm nodule is seen in the inferior left upper lobe, image 27 series 5. The heart is upper limits normal in size. No pericardial effusion. No mediastinal or hilar mass or adenopathy. There is unusual incidental finding of a left-sided inferior vena cava. Normal left-sided aortic arch and branching anatomy are noted. The included portion of the thyroid is unremarkable. No axillary or chest wall mass or adenopathy. The bones are unremarkable. The included upper abdominal anatomy demonstrates a 2.5 cm right adrenal mass which demonstrates negative Hounsfield unit attenuation, presumably a benign adenoma. The included upper renal poles demonstrate bilateral hydronephrosis versus bilateral renal parapelvic cysts Impression: Left basilar atelectasis and possible infiltrate Trace bilateral pleural effusions Minimal right basilar atelectasis Bilateral small lung nodules, as described. If there is significant smoking history, recommend 6-12 months short interval follow-up Bilateral hydronephrosis versus parapelvic cysts, incompletely evaluated/included. 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 This agrees with the preliminary interpretation provided overnight by Dr. Ruiz The CT scanner at [facility] is accredited by the [employer] and the scans are performed using protocols designed to limit radiation exposure to as low as reasonably achievable to attain images of sufficient resolution adequate for diagnostic evaluation.
[2019-06-09 09:47] LABS: CHOLESTEROL 174 MG/DL (< 200); HDL CHOLESTEROL 45 MG/DL (40-60); TRIGLYCERIDES 80 MG/DL (30-150)
--- NOTE | 2019-06-09 10:41 | Diagnostic Imaging Report ---
Indication: Chest pain Technique: One view of the chest Comparison: none Findings: Left hemidiaphragm is elevated. Atelectatic bands are seen in the left lung base. There may be slight blunting of left costophrenic sulcus. There is suggestion of slight blunting of the right costophrenic sulcus as well. The upper lung narvaez are clear. The heart is borderline enlarged Impression: Left basilar atelectasis and possible consolidation Suspect trace bilateral pleural effusions
--- NOTE | 2019-06-09 11:32 | Consultation ---
History of Present Illness General Date patient seen: Jun 09, 2019 Chief Complaint: Chest Pain Present Illness HPI 64 year old male with hx of HTN, BPH, recent BURP presented to ER with CC of left sided upper chest pain waking him out of sleep at around 3:00 in the morning He describes the pain as heaviness and sharp rates the pain is 5 out of 10. His Bp was elevated as well, 168 systolic at home with a heart rate of 100. His CXR and CT of chest in ER showed LLL infiltrate. He had some leukocytosis as well. Pt is admitted to telemetry for further management. Allergies: Coded Allergies: No Known Allergies (Unverified , 08/25/18) Medication History Scheduled Olmesartan Medoxomil (Benicar), 20 MG ORAL DAILY, (Reported) Tamsulosin Hcl (Tamsulosin Hcl*), 0.4 MG ORAL BEDTIME, (Reported) [Vit D], 2,000 DAILY, (Reported) Patient History Healthcare decision maker Resuscitation status Full Code Advanced Directive on File Past Medical/Surgical History Past Medical/Surgical History: (1) History of hypertension (2) BPH (benign prostatic hyperplasia) (3) S/P TURP Review of Systems All Other Systems: negative except mentioned in HPI Physical Exam General Appearance: WD/WN, no apparent distress, alert Lines, tubes and drains: peripheral HEENT: normocephalic, atraumatic Neck: non-tender, normal alignment Respiratory/Chest: chest wall non-tender, lungs clear Breasts: no masses Cardiovascular/Chest: normal peripheral pulses Abdomen: normal bowel sounds, non tender, soft Extremities: normal range of motion, normal inspection Skin Exam: normal pigmentation Neurologic: no motor/sensory deficits Last 24 Hour Vital Signs Date Time Temp Pulse Resp B/P (MAP) Pulse Ox O2 Delivery O2 Flow Rate FiO2 06/09/19 09:00 Room Air 06/09/19 08:00 99.0 87 20 104/67 (79) 96 06/09/19 08:00 87 06/09/19 04:00 77 06/09/19 04:00 97.9 79 18 117/67 (84) 96 06/09/19 00:00 97.9 78 18 105/76 (86) 95 06/08/19 22:34 Room Air 06/08/19 22:05 76 06/08/19 22:05 97.9 81 18 117/75 (89) 92 06/08/19 21:06 98.1 89 16 137/76 98 Room Air 06/08/19 20:08 140/85 06/08/19 19:06 98.1 16 139/81 98 Room Air 06/08/19 19:06 93 16 Room Air 06/08/19 18:56 98.1 93 16 139/81 (100) 98 Room Air Intake and Output 06/08/19 06/09/19 19:00 07:00 Intake Total 140 ml Balance 140 ml Intake Oral 140 ml # Voids 4 Laboratory Tests Test 06/08/19 19:10 06/09/19 07:24 White Blood Count 14.5 K/UL (4.8-10.8) H 11.0 K/UL (4.8-10.8) H Red Blood Count 4.29 M/UL (4.70-6.10) L 4.29 M/UL (4.70-6.10) L Hemoglobin 13.3 G/DL (14.2-18.0) L 13.5 G/DL (14.2-18.0) L Hematocrit 39.5 % (42.0-52.0) L 39.4 % (42.0-52.0) L Mean Corpuscular Volume 92 FL (80-99) 92 FL (80-99) Mean Corpuscular Hemoglobin 31.1 PG (27.0-31.0) H 31.5 PG (27.0-31.0) H Mean Corpuscular Hemoglobin Concent 33.7 G/DL (32.0-36.0) 34.4 G/DL (32.0-36.0) Red Cell Distribution Width 10.8 % (11.6-14.8) L 10.8 % (11.6-14.8) L Platelet Count 238 K/UL (150-450) 242 K/UL (150-450) Mean Platelet Volume 7.7 FL (6.5-10.1) 7.9 FL (6.5-10.1) Neutrophils (%) (Auto) 79.4 % (45.0-75.0) H 71.4 % (45.0-75.0) Lymphocytes (%) (Auto) 12.1 % (20.0-45.0) L 19.2 % (20.0-45.0) L Monocytes (%) (Auto) 7.6 % (1.0-10.0) 7.9 % (1.0-10.0) Eosinophils (%) (Auto) 0.4 % (0.0-3.0) 0.7 % (0.0-3.0) Basophils (%) (Auto) 0.5 % (0.0-2.0) 0.8 % (0.0-2.0) Sodium Level 137 MMOL/L (136-145) Potassium Level 4.2 MMOL/L (3.5-5.1) Chloride Level 100 MMOL/L (98-107) Carbon Dioxide Level 28 MMOL/L (21-32) Anion Gap 9 mmol/L (5-15) Blood Urea Nitrogen 16 mg/dL (7-18) Creatinine 1.5 MG/DL (0.55-1.30) H Estimat Glomerular Filtration Rate 47.0 mL/min (>60) Glucose Level 114 MG/DL (74-106) H Calcium Level 9.0 MG/DL (8.5-10.1) Total Bilirubin 0.7 MG/DL (0.2-1.0) Aspartate Amino Transf (AST/SGOT) 17 U/L (15-37) Alanine Aminotransferase (ALT/SGPT) 18 U/L (12-78) Alkaline Phosphatase 99 U/L (46-116) Total Creatine Kinase 70 U/L (26-308) Creatine Kinase MB < 0.5 NG/ML (0.0-3.6) Creatine Kinase MB Relative Index 0.7 Troponin I 0.000 ng/mL (0.000-0.056) 0.000 ng/mL (0.000-0.056) Pro-B-Type Natriuretic Peptide 88 pg/mL (0-125) Total Protein 7.5 G/DL (6.4-8.2) Albumin 3.9 G/DL (3.4-5.0) Globulin 3.6 g/dL Albumin/Globulin Ratio 1.1 (1.0-2.7) Prothrombin Time 10.5 SEC (9.30-11.50) Prothromb Time International Ratio 1.0 (0.9-1.1) Activated Partial Thromboplast Time 32 SEC (23-33) C-Reactive Protein, Quantitative 7.9 mg/dL (0.00-0.90) H Triglycerides Level 80 MG/DL (30-150) Cholesterol Level 174 MG/DL (< 200) LDL Cholesterol 112 mg/dL (<100) H HDL Cholesterol 45 MG/DL (40-60) Cholesterol/HDL Ratio 3.9 (3.3-4.4) Thyroid Stimulating Hormone (TSH) 2.014 uiU/mL (0.358-3.740) Height (Feet): 5 Height (Inches): 6.00 Weight (Pounds): 184 Medications Current Medications Medications (Trade) Dose Ordered Sig/Dee Route PRN Reason Start Time Stop Time Status Last Admin Dose Admin Acetaminophen (Tylenol) 650 mg Q4H PRN ORAL FEVER 06/08/19 21:45 07/08/19 21:44 Albuterol/ Ipratropium (Albuterol/ Ipratropium) 3 ml Q4H PRN HHN Shortness of Breath 06/08/19 21:45 06/13/19 21:44 Aspirin (ASA) 162 mg DAILY ORAL 06/09/19 09:00 07/09/19 08:59 06/09/19 08:34 Diltiazem HCl (Cardizem) 10 mg Q1H PRN IV heart rate more than 120, 06/08/19 21:45 07/08/19 21:44 Enalaprilat (Vasotec) 2.5 mg Q6H PRN IV sbp more than 160 06/08/19 21:45 07/08/19 21:44 Heparin Sodium (Porcine) (Heparin 5000 units/ml) 5,000 units EVERY 12 HOURS SUBQ 06/09/19 09:00 07/09/19 08:59 06/09/19 08:35 Morphine Sulfate (Morphine Sulfate) 2 mg Q4H PRN IVP severe Pain (Pain Scale 7-10) 06/08/19 21:45 06/15/19 21:44 06/09/19 02:02 Nitroglycerin (Ntg) 0.4 mg Q5M PRN SL Prn Chest Pain 06/08/19 21:45 07/08/19 21:44 Ondansetron HCl (Zofran) 4 mg Q6H PRN IVP Nausea & Vomiting 06/08/19 21:45 07/08/19 21:44 Polyethylene Glycol (Miralax) 17 gm DAILYPRN PRN ORAL Constipation 06/08/19 21:45 07/08/19 21:44 Tamsulosin HCl (Flomax) 0.4 mg BEDTIME ORAL 06/09/19 21:00 07/09/19 20:59 Temazepam (Restoril) 15 mg HSPRN PRN ORAL Insomnia 06/08/19 21:45 06/15/19 21:44 Assessment/Plan Problem List: (1) Pneumonia ICD Codes: J18.9 - Pneumonia, unspecified organism SNOMED: 303497041 (2) ACS (acute coronary syndrome) ICD Codes: I24.9 - Acute ischemic heart disease, unspecified SNOMED: 005423618 (3) S/P TURP ICD Codes: Z90.79 - Acquired absence of other genital organ(s) SNOMED: 97285994, 16174043, 476047106 (4) History of hypertension ICD Codes: Z86.79 - Personal history of other diseases of the circulatory system SNOMED: 038428007 (5) BPH (benign prostatic hyperplasia) ICD Codes: N40.0 - Benign prostatic hyperplasia without lower urinary tract symptoms SNOMED: 735942518 Assessment/Plan: respiratory treatment chest pt iv abx check sputum antitussives serial ekg, troponin echocardiogram symptomatic treatment monitor BP adjust antihypertensive drugs. Celia Blackman MD Jun 09, 2019 11:32
[2019-06-09] MEDS ORDERED: Promethazine/Codeine 5ml UD ORAL PRN (11:45)
[2019-06-09 12:00] VITALS: BP 111/62
[2019-06-09 13:07] LABS: CREATINE KINASE 53 U/L (26-308)
--- NOTE | 2019-06-09 13:10 | NUR ---
*-* INSURANCE *-* CLINICALS HAVE BEEN FAXED TO: [facility] ADMISSION REPORTED TO :RODOLFO Bailey @ [employer] [facility] TRACKING:[id number] DAYS : 2 DAYS APPROVED NCM:NONE IF PT IS NOT DISCHARGED BY 06/10 PLEASE FAX CLINICALS TO
[2019-06-09] MEDS ORDERED: Piperacillin/Tazobactam 3.375 GM in NS 110 ML IVPB SCH (14:00)
--- NOTE | 2019-06-09 14:22 | Consultation ---
History of Present Illness General Date patient seen: Jun 09, 2019 Chief Complaint: Chest Pain Present Illness HPI 64 y/o M with hx of HTN, nephrolithiasis, BPH s/p recent TURP presented to ED on 06/08/19 with L side upper chest pain that wake him up from sleep around 3 am. Pain described as heaviness, sharp, 5/10 of intensity. At home, SBP 168, HR 100. CXR in ED showed LLL infiltrate and was found to have leukocytosis. Denied n/v/d Allergies: Coded Allergies: No Known Allergies (Unverified , 08/25/18) Medication History Scheduled Olmesartan Medoxomil (Benicar), 20 MG ORAL DAILY, (Reported) Tamsulosin Hcl (Tamsulosin Hcl*), 0.4 MG ORAL BEDTIME, (Reported) [Vit D], 2,000 DAILY, (Reported) Patient History Healthcare decision maker Resuscitation status Full Code Advanced Directive on File Patient History Narrative Pmhx: as above Shx: reviewed Fhx: non contributory Physical Exam Physical Exam Narrative General Appearance: WD/WN, no apparent distress, alert Lines, tubes and drains: peripheral HEENT: normocephalic, atraumatic Neck: non-tender, normal alignment Respiratory/Chest: chest wall non-tender, lungs clear Cardiovascular/Chest: normal peripheral pulses Abdomen: normal bowel sounds, non tender, soft Extremities: normal range of motion, normal inspection Skin Exam: normal pigmentation Neurologic: no motor/sensory deficits Last 24 Hour Vital Signs Date Time Temp Pulse Resp B/P (MAP) Pulse Ox O2 Delivery O2 Flow Rate FiO2 06/09/19 12:00 75 06/09/19 12:00 98.9 78 20 111/62 (78) 96 06/09/19 09:00 Room Air 06/09/19 08:00 99.0 87 20 104/67 (79) 96 06/09/19 08:00 87 06/09/19 04:00 77 06/09/19 04:00 97.9 79 18 117/67 (84) 96 06/09/19 00:00 97.9 78 18 105/76 (86) 95 06/08/19 22:34 Room Air 06/08/19 22:05 76 06/08/19 22:05 97.9 81 18 117/75 (89) 92 06/08/19 21:06 98.1 89 16 137/76 98 Room Air 06/08/19 20:08 140/85 06/08/19 19:06 98.1 16 139/81 98 Room Air 06/08/19 19:06 93 16 Room Air 06/08/19 18:56 98.1 93 16 139/81 (100) 98 Room Air Intake and Output 06/08/19 06/09/19 19:00 07:00 Intake Total 140 ml Balance 140 ml Intake Oral 140 ml # Voids 4 Laboratory Tests Test 06/08/19 19:10 06/09/19 07:24 White Blood Count 14.5 K/UL (4.8-10.8) H 11.0 K/UL (4.8-10.8) H Red Blood Count 4.29 M/UL (4.70-6.10) L 4.29 M/UL (4.70-6.10) L Hemoglobin 13.3 G/DL (14.2-18.0) L 13.5 G/DL (14.2-18.0) L Hematocrit 39.5 % (42.0-52.0) L 39.4 % (42.0-52.0) L Mean Corpuscular Volume 92 FL (80-99) 92 FL (80-99) Mean Corpuscular Hemoglobin 31.1 PG (27.0-31.0) H 31.5 PG (27.0-31.0) H Mean Corpuscular Hemoglobin Concent 33.7 G/DL (32.0-36.0) 34.4 G/DL (32.0-36.0) Red Cell Distribution Width 10.8 % (11.6-14.8) L 10.8 % (11.6-14.8) L Platelet Count 238 K/UL (150-450) 242 K/UL (150-450) Mean Platelet Volume 7.7 FL (6.5-10.1) 7.9 FL (6.5-10.1) Neutrophils (%) (Auto) 79.4 % (45.0-75.0) H 71.4 % (45.0-75.0) Lymphocytes (%) (Auto) 12.1 % (20.0-45.0) L 19.2 % (20.0-45.0) L Monocytes (%) (Auto) 7.6 % (1.0-10.0) 7.9 % (1.0-10.0) Eosinophils (%) (Auto) 0.4 % (0.0-3.0) 0.7 % (0.0-3.0) Basophils (%) (Auto) 0.5 % (0.0-2.0) 0.8 % (0.0-2.0) Sodium Level 137 MMOL/L (136-145) Potassium Level 4.2 MMOL/L (3.5-5.1) Chloride Level 100 MMOL/L (98-107) Carbon Dioxide Level 28 MMOL/L (21-32) Anion Gap 9 mmol/L (5-15) Blood Urea Nitrogen 16 mg/dL (7-18) Creatinine 1.5 MG/DL (0.55-1.30) H Estimat Glomerular Filtration Rate 47.0 mL/min (>60) Glucose Level 114 MG/DL (74-106) H Calcium Level 9.0 MG/DL (8.5-10.1) Total Bilirubin 0.7 MG/DL (0.2-1.0) Aspartate Amino Transf (AST/SGOT) 17 U/L (15-37) Alanine Aminotransferase (ALT/SGPT) 18 U/L (12-78) Alkaline Phosphatase 99 U/L (46-116) Total Creatine Kinase 70 U/L (26-308) 53 U/L (26-308) Creatine Kinase MB < 0.5 NG/ML (0.0-3.6) Creatine Kinase MB Relative Index 0.7 Troponin I 0.000 ng/mL (0.000-0.056) 0.000 ng/mL (0.000-0.056) Pro-B-Type Natriuretic Peptide 88 pg/mL (0-125) Total Protein 7.5 G/DL (6.4-8.2) Albumin 3.9 G/DL (3.4-5.0) Globulin 3.6 g/dL Albumin/Globulin Ratio 1.1 (1.0-2.7) Prothrombin Time 10.5 SEC (9.30-11.50) Prothromb Time International Ratio 1.0 (0.9-1.1) Activated Partial Thromboplast Time 32 SEC (23-33) Uric Acid 6.3 MG/DL (2.6-7.2) C-Reactive Protein, Quantitative 7.9 mg/dL (0.00-0.90) H Triglycerides Level 80 MG/DL (30-150) Cholesterol Level 174 MG/DL (< 200) LDL Cholesterol 112 mg/dL (<100) H HDL Cholesterol 45 MG/DL (40-60) Cholesterol/HDL Ratio 3.9 (3.3-4.4) Thyroid Stimulating Hormone (TSH) 2.014 uiU/mL (0.358-3.740) Height (Feet): 5 Height (Inches): 6.00 Weight (Pounds): 184 Medications Current Medications Medications (Trade) Dose Ordered Sig/Dee Route PRN Reason Start Time Stop Time Status Last Admin Dose Admin Acetaminophen (Tylenol) 650 mg Q4H PRN ORAL FEVER 06/08/19 21:45 07/08/19 21:44 Albuterol/ Ipratropium (Albuterol/ Ipratropium) 3 ml Q4H PRN HHN Shortness of Breath 06/08/19 21:45 06/13/19 21:44 Aspirin (ASA) 162 mg DAILY ORAL 06/09/19 09:00 07/09/19 08:59 06/09/19 08:34 Diltiazem HCl (Cardizem) 10 mg Q1H PRN IV heart rate more than 120, 06/08/19 21:45 07/08/19 21:44 Enalaprilat (Vasotec) 2.5 mg Q6H PRN IV sbp more than 160 06/08/19 21:45 07/08/19 21:44 Heparin Sodium (Porcine) (Heparin 5000 units/ml) 5,000 units EVERY 12 HOURS SUBQ 06/09/19 09:00 07/09/19 08:59 06/09/19 08:35 Morphine Sulfate (Morphine Sulfate) 2 mg Q4H PRN IVP severe Pain (Pain Scale 7-10) 06/08/19 21:45 06/15/19 21:44 06/09/19 02:02 Nitroglycerin (Ntg) 0.4 mg Q5M PRN SL Prn Chest Pain 06/08/19 21:45 07/08/19 21:44 Ondansetron HCl (Zofran) 4 mg Q6H PRN IVP Nausea & Vomiting 06/08/19 21:45 07/08/19 21:44 Piperacillin Sod/ Tazobactam Sod 3.375 gm/Sodium Chloride 110 ml @ 27.5 mls/hr EVERY 8 HOURS IVPB 06/09/19 14:00 06/14/19 13:59 Polyethylene Glycol (Miralax) 17 gm DAILYPRN PRN ORAL Constipation 06/08/19 21:45 07/08/19 21:44 Promethazine HCl/ Codeine (Phenergan with Codeine) 5 ml Q4H PRN ORAL For Cough 06/09/19 11:45 07/09/19 11:44 Tamsulosin HCl (Flomax) 0.4 mg BEDTIME ORAL 06/09/19 21:00 07/09/19 20:59 Temazepam (Restoril) 15 mg HSPRN PRN ORAL Insomnia 06/08/19 21:45 06/15/19 21:44 Assessment/Plan Assessment/Plan: Abx: Zosyn 06/09- Assessment: PNA (CAP) -CT chest: Left basilar atelectasis and possible infiltrate. Trace bilateral pleural effusions. Minimal right basilar atelectasis. Bilateral small lung nodules, as described. If there is significant smoking history, recommend 6-12 months short interval follow-up. Bilateral hydronephrosis versus parapelvic cysts, incompletely evaluated/included. 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 Will continue to follow along with you. Discussed with ARTURO. Asha Bartholomew M.D. Jun 09, 2019 14:22
[2019-06-09 14:28] LABS: APPEARANCE,URINE CLEAR; BILIRUBIN, URINE NEGATIVE (NEGATIVE); GLUCOSE, URINE (UA) 2+ (NEGATIVE); KETONES,URINE NEGATIVE (NEGATIVE); LEUKOCYTE ESTERASE ,URINE 3+ (NEGATIVE); NITRITE,URINE NEGATIVE (NEGATIVE); PH,URINE 5 (4.5-8.0); PROTEIN,URINE 2+ (NEGATIVE); UROBILINOGEN,URINE NORMAL MG/DL (0.0-1.0)
[2019-06-09 14:37] LABS: COLOR,URINE YELLOW
--- NOTE | 2019-06-09 15:39 | Cardiology Report ---
APPROVED REPORT EXAM: Two-dimensional and M-mode echocardiogram with Doppler and color Doppler. INDICATION Left ventricular function M-Mode DIMENSIONS IVSd1.0 (0.7-1.1cm)Left Atrium (MM)3.8 (1.6-4.0cm) LVDd4.4 (3.5-5.6cm)Aortic Root3.3 (2.0-3.7cm) PWd1.1 (0.7-1.1cm)Aortic Cusp Exc.2.0 (1.5-2.0cm) LVDs2.5 (2.5-4.0cm) PWs2.3 cm Normal left ventricular chamber size, systolic function and wall motion. Left ventricular ejection fraction estimated to be 55 %. No evidence of left ventricular hypertrophy. No evidence of pericardial effusion. All other cardiac chamber sizes are within normal limits. Focal aortic valve sclerosis with adequate cusp excursion. Thickened mitral valve leaflets with normal excursion. Mild mitral annulus and aortic root calcification. Pulmonic valve not well visualized. Normal tricuspid valve structure. IVC is normal in size with physiological collapse. A color flow and spectral Doppler study was performed and revealed: No aortic regurgitation. No mitral regurgitation. Mitral diastolic velocities suggest mild left ventricular diastolic dysfunction (Grade I). Trace tricuspid regurgitation. Tricuspid systolic velocities suggests peak right ventricular systolic pressure of 22 mmHg. No pulmonic regurgitation present.
[2019-06-09 16:00] VITALS: BP 121/65
[2019-06-09] MEDS ORDERED: cefTRIAXone 1 GM in D5W 55 ML IVPB SCH (16:00)
--- NOTE | 2019-06-09 16:51 | Diagnostic Imaging Report ---
Indication: Right flank pain, abnormal renal function tests Technique: Grayscale and duplex images of the kidneys, retroperitoneum, and bladder were obtained. Comparison: none Findings: Right kidney measures 11.3 cm in length. Left kidney measures 11.5 cm in length. Both kidneys demonstrate normal echogenicity. Bilateral mild hydronephrosis versus parapelvic cysts noted. Echogenic focus is seen within the right renal cortex, measures 7 mm in diameter. A questionable calcification is seen within the left renal collecting system. Normal inferior vena cava. Bladder is trabeculated. No definite calculi. Prostate is enlarged, calculated volume 43 mL. There is a TURP defect. Impression: Bilateral mild hydronephrosis versus parapelvic cysts. Consider contrast CT for better characterization. Correlation with any prior outside imaging that may be available would be useful Trabeculated bladder, likely the basis of chronic bladder outlet obstruction Evidence of prior TURP. 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
--- NOTE | 2019-06-09 17:10 | History & Physical ---
History and Physical History & Physicial Trell Cisneros MD Jun 09, 2019 17:09
--- NOTE | 2019-06-09 19:34 | NUR ---
NURSE NOTES: Report given to Lincoln Ravi. Plan of Addendum: 06/09/19 at 1935 by Jolie Howe RN plan of care endorsed.
--- NOTE | 2019-06-09 19:35 | NUR ---
NURSE NOTES: Got report from Ava MORRIS. Pt in stable condition. Denies any pain. No s/s of distress or discomfort noted. Pt resting in bed comfortably. Bed in low and locked position, call light within reach, bedside table within reach. Continue to monitor.
--- NOTE | 2019-06-09 19:45 | History and Physical Report ---
DATE OF ADMISSION: 06/08/2019 CHIEF COMPLAINT: Left-sided chest pain. HISTORY OF PRESENT ILLNESS: This is a 64-year-old very delightful Citizen Of [place] speaking gentleman with past medical history significant for history of renal calculi as well as BPH status post TURP on 05/19/[address] Boggs, and history of hypertension, who was presented to the hospital complaining about left-sided chest pain. The patient stated that the chest pain woke him up around 3 o'clock in the morning and a heavy chest pain localized on the left side of chest wall, substernal, 5/10 intensity was noted. His blood pressure was in systolic 160s and heart rate 100s. Shortly after initial evaluation in the emergency room, the patient was noted to have left lower lobe pneumonia, confirmed on the CT scan of the chest and some leukocytosis, and the patient was subsequently admitted to telemetry for further evaluation and possible therapy for pneumonia. PAST MEDICAL/PAST SURGICAL HISTORY: As above, history of hypertension, BPH status post TURP, and renal calculi. MEDICATIONS: Medications at home significant for Benicar as well as tamsulosin. ALLERGIES: No known drug allergies. SOCIAL HISTORY: The patient denies any smoking, alcohol, or drugs. Socially drinks. 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 He denies any chemical exposure. FAMILY HISTORY: Noncontributory. REVIEW OF SYSTEMS: Mostly as above. Denies any dysuria, frequency, or hematuria. Complained about shortness of breath, mostly with deep inspiration. Complained about chest pain, mostly with sitting up. Denies any cough. Denies any hemoptysis. Denies any bright red blood per rectum. Denies any acid reflux. Denies any loss of consciousness. Denies any fall or head trauma. PHYSICAL EXAMINATION: VITAL SIGNS: On admission, temperature 98.1, pulse 93, respirations 16, and blood pressure 139/81. GENERAL: The patient is awake and responsive, in no acute distress. HEAD AND NECK: Pupils are reactive to light. Extraocular movements intact. Neck was supple. No JVD. LUNGS: Good air entry. No wheeze or rales. HEART: S1, S2. Regular rhythm. No gallops. ABDOMEN: Soft, nondistended, and nontender. Positive bowel sounds. MUSCULOSKELETAL: Chest wall tenderness on the left side. Point tenderness on the left costophrenic angle area. EXTREMITIES: No cyanosis, clubbing, or edema. NEUROLOGIC: Cranial nerves II through XII grossly intact. Motor is 5/5 in all extremities. Gait is intact. RECTAL/GENITOURINARY: Refused and deferred. PSYCHIATRIC: Mood and affect is intact. LABORATORY DATA: On admission WBC 14, hemoglobin 13, hematocrit 39, and platelets 238. PT 10, INR 1.0, PTT 32. Sodium 132, potassium 4.2, chloride 100, bicarb 28, BUN 16, and creatinine 1.5. Glucose is 114. First and second troponin less than 0.00. CK-MB less than 0.5. 174. Urinalysis, +2 protein, +2 glucose, +5 blood, tainted rbc's, +2 leukocytes, 20 to 30 wbc's. Eosinophil was not seen. Chest x-ray was noted to be left basal atelectasis, possible consolidation suspected, trace bilateral pleural effusion. CT of the chest without contrast noted to have left basal atelectasis, possible infiltrate. Trace bilateral pleural effusion. Minimal right basal atelectasis. Bilateral small lung nodule as described. If there is any suspicious history of smoking, consider referral 6 to 12 weeks interval follow-up. Bilateral hydronephrosis versus prior pelvic cyst, incompletely evaluated. 2.5 cm right adrenal mass. Incidental finding of left-sided inferior vena cava. The patient had a renal ultrasound done, bilateral mild hydronephrosis versus prior pelvic cyst. Consider contrast CT scan. Trabeculated bladder, likely based on chronic bladder outlet obstruction evaluated for the prior TURP. Mild prostatomegaly. Echocardiogram was done, showed ejection fraction of 55% with left ventricular systolic normal. No hypertrophy and no evidence of pericardial effusion. Pulmonic valve not well visualized. Trace tricuspid regurgitation. Tricuspid systolic velocity suggestive of the right ventricular systolic pressure of 22. No pulmonic regurgitation was noted. EKG was noted to be normal sinus rhythm with ventricular rate of 94. No ST elevation. Q-wave was noted in leads I, aVL and leads V4 and V5. No T-wave inversion. ASSESSMENT: 1. Atypical chest pain, possibly due to the left lower lobe pneumonia. 2. History of benign prostatic hypertrophy, status post transurethral resection of prostate. 3. Bilateral hydronephrosis, most likely secondary to the bladder outlet obstruction and BPH. 4. Hypertension. 5. Urinary tract infection. PLAN: Admit the patient to telemetry. We will follow up with Dr. Blackman, Pulmonary Critical Care consultation as well as Dr. Bartholomew from Infectious Disease. We will monitor laboratory as well as culture. DVT prophylaxis, heparin subcutaneous. Broad-spectrum antibiotic with Rocephin. Code status is Full Code. Trell Cisneros M.D. DR: JOSHUA JOB#: [id number] CC:
[2019-06-09 20:00] VITALS: BP 108/68
[2019-06-09] MEDS ORDERED: Tamsulosin 0.4mg cap ORAL SCH (21:00)
--- NOTE | 2019-06-09 21:19 | Cardiology Progress Note ---
Assessment/Plan Assessment/Plan [id number] doubt ischemic pain either m/s or pulm venous duplex no further cardiac enzyme unless trop ekg abn or relieving or exacerbating factors indicate question of ischemia Objective Last 24 Hour Vital Signs Date Time Temp Pulse Resp B/P (MAP) Pulse Ox O2 Delivery O2 Flow Rate FiO2 06/09/19 20:36 99.0 06/09/19 19:45 95 Room Air 21 06/09/19 16:00 85 06/09/19 16:00 97.9 92 20 121/65 (83) 95 06/09/19 12:00 75 06/09/19 12:00 98.9 78 20 111/62 (78) 96 06/09/19 09:00 Room Air 06/09/19 08:00 99.0 87 20 104/67 (79) 96 06/09/19 08:00 87 06/09/19 04:00 77 06/09/19 04:00 97.9 79 18 117/67 (84) 96 06/09/19 00:00 97.9 78 18 105/76 (86) 95 06/08/19 22:34 Room Air 06/08/19 22:05 76 06/08/19 22:05 97.9 81 18 117/75 (89) 92 Intake and Output 06/08/19 06/09/19 19:00 07:00 Intake Total 140 ml Balance 140 ml Intake Oral 140 ml # Voids 4 Laboratory Tests Test 06/09/19 07:24 06/09/19 14:00 White Blood Count 11.0 K/UL (4.8-10.8) H Red Blood Count 4.29 M/UL (4.70-6.10) L Hemoglobin 13.5 G/DL (14.2-18.0) L Hematocrit 39.4 % (42.0-52.0) L Mean Corpuscular Volume 92 FL (80-99) Mean Corpuscular Hemoglobin 31.5 PG (27.0-31.0) H Mean Corpuscular Hemoglobin Concent 34.4 G/DL (32.0-36.0) Red Cell Distribution Width 10.8 % (11.6-14.8) L Platelet Count 242 K/UL (150-450) Mean Platelet Volume 7.9 FL (6.5-10.1) Neutrophils (%) (Auto) 71.4 % (45.0-75.0) Lymphocytes (%) (Auto) 19.2 % (20.0-45.0) L Monocytes (%) (Auto) 7.9 % (1.0-10.0) Eosinophils (%) (Auto) 0.7 % (0.0-3.0) Basophils (%) (Auto) 0.8 % (0.0-2.0) Prothrombin Time 10.5 SEC (9.30-11.50) Prothromb Time International Ratio 1.0 (0.9-1.1) Activated Partial Thromboplast Time 32 SEC (23-33) Uric Acid 6.3 MG/DL (2.6-7.2) Total Creatine Kinase 53 U/L (26-308) Troponin I 0.000 ng/mL (0.000-0.056) C-Reactive Protein, Quantitative 7.9 mg/dL (0.00-0.90) H Triglycerides Level 80 MG/DL (30-150) Cholesterol Level 174 MG/DL (< 200) LDL Cholesterol 112 mg/dL (<100) H HDL Cholesterol 45 MG/DL (40-60) Cholesterol/HDL Ratio 3.9 (3.3-4.4) Thyroid Stimulating Hormone (TSH) 2.014 uiU/mL (0.358-3.740) Urine Color Yellow Urine Appearance Clear Urine pH 5 (4.5-8.0) Urine Specific [place] 1.025 (1.005-1.035) Urine Protein 2+ (NEGATIVE) H Urine Glucose (UA) 2+ (NEGATIVE) H Urine Ketones Negative (NEGATIVE) Urine Blood 5+ (NEGATIVE) H Urine Nitrite Negative (NEGATIVE) Urine Bilirubin Negative (NEGATIVE) Urine Urobilinogen Normal MG/DL (0.0-1.0) Urine Leukocyte Esterase 3+ (NEGATIVE) H Urine RBC Tntc /HPF (0 - 0) H Urine WBC 20-30 /HPF (0 - 0) H Urine Squamous Epithelial Cells Few /LPF (NONE/OCC) Urine Bacteria Few /HPF (NONE) Urine Eosinophils None seen (NONE SEEN) Urine Osmolality 796 mOsm/kg (429-449) H Urine Random Creatinine Pending Urine Random Microalbumin Pending Urine Random Sodium 84 mmol/L (20-110) Urine Microalbumin/Creatinine Ratio Pending Urine Legionella Antigen Pending Lee Deluca MD Jun 09, 2019 21:19
--- NOTE | 2019-06-09 23:30 | Consultation ---
DATE OF CONSULTATION: 06/09/2019 CARDIOLOGY CONSULTATION CONSULTING PHYSICIAN: Lee Deluca M.D. REFERRING PHYSICIANS: 1. Trell Cisneros M.D. 2. Celia Blackman M.D. REASON FOR REFERRAL: Chest pain. HISTORY OF PRESENT ILLNESS: This is a 64-year-old gentleman, who presented to the hospital because of pain that started approximately 3 o'clock on Friday morning and was persistent until midday when it went away, but it came back again, and finally presented to the emergency room here yesterday afternoon and this consultation has been requested today for help in management of his pain. His pain is now better. He does indicate that the pain does get worse when he takes a deep breath or when he moves his left arm or when he tries to sit up or lay back down in bed, not with ambulation. There is no PND or orthopnea. He uses one pillow. He has problem with taking a deep breath only when he is lying down and sitting up he feels better. Does not have any heart pounding or palpitation. PAST MEDICAL HISTORY: Positive for history of recent hospitalization here at [facility] at which time he underwent surgery under Dr. Boggs for bladder stones and benign prostatic hypertrophy. He underwent TURP as well as cystolitholapaxy. Does have a history of prostatic hypertrophy and nephrolithiasis. Denies history of diabetes, high blood pressure, heart attack, cancer, stroke, hepatitis, tuberculosis, asthma, or emphysema. No ulcers. No kidney problems, except for what was noted above. No liver problems, thyroid problems, anemia, arthritis, HIV, AIDS, or blood clots. He does have a history of prostate enlargement as noted. ALLERGIES: He is not allergic to any medications. SOCIAL HISTORY: He used to smoke and drink very rarely, but has not done so in the long time. 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 REVIEW OF SYSTEMS: GASTROINTESTINAL: Denies. GENITOURINARY: Denies. PULMONARY: He denies except for pain when he takes a deep breath. He is unable to take a deep breath. CONSTITUTIONAL: Negative. NEUROLOGICAL: Negative. PHYSICAL EXAMINATION: GENERAL: Shows to be middle-aged gentleman, in no respiratory distress. He is sitting up in the chair next to his bed. LUNGS: Appear to be relatively clear to auscultation and percussion. CARDIAC: S1 is normal. S2 is normal. Regular rate and rhythm. No heaves, thrills, or gallops noted. ABDOMEN: Soft, nontender. Positive bowel sounds. CHEST: Chest wall does not appear to be tender to palpation. EXTREMITIES: There is no clubbing, cyanosis, or edema. NEUROLOGICAL: He is awake, alert, responsive, and in no apparent respiratory distress. LABORATORY AND DIAGNOSTIC DATA: White count 11, hemoglobin 13.5, platelet count of 242. Sodium is 137, potassium 4.2, chloride 100, bicarbonate 28, BUN 16, creatinine 1.5, and glucose of 114. Liver function tests are all normal. Two sets of cardiac enzymes are negative. CRP of 7.9. Total cholesterol 174 with LDL of 112, HDL of 45. TSH of 2.014. His INR is 1.3 and PTT of 32. His electrocardiogram shows normal sinus rhythm, no ST or T-wave abnormalities. He did have a CT scan of the chest that basically showed trace right and small left-sided effusion with some atelectasis in the left base. Possible consolidation down the left lower lobe and lingula. Minimal atelectasis in the right base and some pulmonary nodules are noted. Heart is upper limits of normal. No effusion. No mediastinal adenopathy or masses. Left-sided IVC and left-sided aortic arch and branching anatomy is noted. Thyroid was normal and an adrenal mass. ASSESSMENT AND PLAN: 1. Chest pain, most likely musculoskeletal or pulmonary. 2. Benign prostatic hypertrophy, status post TURP. 3. Possible atelectasis versus pulmonary infiltrates. 4. 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 Dr. Cisneros, this patient was seen in cardiac consultation. The patient's description that he provides with exacerbating and alleviating factors are not suggestive of an ischemic pain either musculoskeletal or may be a component of pulmonary. Pain is not reproducible on palpation, but certain position do exacerbate the pain, which makes me wonder about those issues as mentioned. The echocardiogram has been read, officially showed normal left ventricular systolic function. No significant valvular regurgitation. The CT scan is read as showing a left-sided IVC being present. His cardiac enzymes are negative. EKG is unremarkable. I will not pursue any further cardiac testing at this time unless either the EKG or cardiac enzymes are abnormal or persistent pain in the future. One may consider venous duplex study of his lower extremities in light of the fact that he has been in the hospital just recently. Dr. Cisneros, thank you for allowing me to participate in the care of this patient. Lee Deluca M.D. DR: JAM JOB#: [id number] CC:
[2019-06-10] VITALS (8 sets, daily range): BP systolic 98–131; BP diastolic 61–81
[2019-06-10 06:54] LABS: BASOPHILS % (AUTO) 0.6 % (0.0-2.0); EOSINOPHILS % (AUTO) 0.8 % (0.0-3.0); HEMATOCRIT 38.7 % (42.0-52.0); HEMOGLOBIN 13.2 G/DL (14.2-18.0); LYMPHOCYTES % (AUTO) 18.6 % (20.0-45.0); MEAN CORPUSCULAR VOLUME 93 FL (80-99); PLATELET COUNT 217 K/UL (150-450); RED BLOOD COUNT 4.18 M/UL (4.70-6.10); RED CELL DISTRIBUTION WIDTH 10.7 % (11.6-14.8); WHITE BLOOD COUNT 11.2 K/UL (4.8-10.8)
--- NOTE | 2019-06-10 07:10 | NUR ---
HAND-OFF: Report given to Ava MORRIS. Endorsed plan of care.
--- NOTE | 2019-06-10 07:12 | NUR ---
NURSE NOTES:Received report from ARTURO Delgado. Patient awake and alert. sitting up comfortably in chair. Denies pain or discomfort. safety precautions in place. will continue to monitor.
[2019-06-10 07:46] LABS: ALANINE AMINOTRANSFERASE 32 U/L (12-78); ALBUMIN 3.4 G/DL (3.4-5.0); ALBUMIN/GLOBULIN RATIO 1.1 (1.0-2.7); ALKALINE PHOSPHATASE 94 U/L (46-116); ANION GAP 12 mmol/L (5-15); ASPARTATE AMINO TRANSFERASE 23 U/L (15-37); BILIRUBIN,TOTAL 0.7 MG/DL (0.2-1.0); BLOOD UREA NITROGEN 16 mg/dL (7-18); CALCIUM 8.8 MG/DL (8.5-10.1); CARBON DIOXIDE 26 MMOL/L (21-32); CHLORIDE 104 MMOL/L (98-107); CREATININE 1.2 MG/DL (0.55-1.30); PHOSPHORUS 3.2 MG/DL (2.5-4.9); POTASSIUM 3.9 MMOL/L (3.5-5.1); SODIUM 141 MMOL/L (136-145)
[2019-06-10] MEDS: Heparin 5000 units/ml inj SUBQ SCH ×2 (08:10→20:39)
[2019-06-10] MEDS: Aspirin Baby 81mg ORAL SCH (08:11)
[2019-06-10] MEDS ORDERED: Azithromycin 250mg tab ORAL SCH (09:00)
--- NOTE | 2019-06-10 09:50 | NUR ---
NURSE NOTES: Patients brought in razor from home so the patient could shave. Patient cut him self and is bleeding. Provided gauze and alcohol. Explained to the patient and his that she should not bring anything from home. Pt and verbalized understanding. Pt is no longer bleeding. He denied any pain. Pt states "I'm ok". Will continue to monitor.
--- NOTE | 2019-06-10 10:30 | Pulmonology Progress Note ---
Assessment/Plan Problems: (1) Pneumonia (2) ACS (acute coronary syndrome) (3) Hematuria (4) BPH (benign prostatic hyperplasia) (5) History of hypertension (6) S/P TURP Assessment/Plan continue abx, on Ceftriaxone and Zithromax respiratory treatment check sputum f/u wbc cardiology consult appreciated dvt prophylaxis. Subjective ROS Limited/Unobtainable: No Interval Events: still has chest pain, less cough Constitutional: Reports: no symptoms Allergies: Coded Allergies: No Known Allergies (Unverified , 08/25/18) Objective Last 24 Hour Vital Signs Date Time Temp Pulse Resp B/P (MAP) Pulse Ox O2 Delivery O2 Flow Rate FiO2 06/10/19 09:00 Room Air 06/10/19 08:00 91 06/10/19 08:00 97.9 95 22 98/61 (73) 95 06/10/19 07:21 95 Room Air 21 06/10/19 04:20 97.3 77 18 117/73 (88) 96 06/10/19 04:11 88 06/10/19 00:07 99.0 77 18 116/67 (83) 95 06/10/19 00:00 73 06/09/19 21:00 99.0 06/09/19 21:00 Room Air 06/09/19 20:36 99.0 06/09/19 20:00 101.0 91 18 108/68 (81) 96 06/09/19 20:00 88 06/09/19 19:45 95 Room Air 21 06/09/19 16:00 85 06/09/19 16:00 97.9 92 20 121/65 (83) 95 06/09/19 12:00 75 06/09/19 12:00 98.9 78 20 111/62 (78) 96 Intake and Output 06/09/19 06/10/19 19:00 07:00 Intake Total 570 ml Balance 570 ml Intake Oral 570 ml # Voids 7 3 # Bowel Movements 1 General Appearance: WD/WN HEENT: normocephalic, atraumatic Respiratory/Chest: chest wall non-tender, lungs clear Cardiovascular: normal peripheral pulses, normal rate Abdomen: normal bowel sounds, soft, non tender Genitourinary: normal external genitalia Extremities: no cyanosis Skin: no rash Neurologic/Psychiatric: spinner hydraulic II-XII grossly normal, no motor/sensory deficits Lymphatic: no neck adenopathy Musculoskeletal: normal muscle bulk Microbiology Date/Time Source Procedure Growth Status 06/09/19 14:00 Urine,Clean Catch Urine Culture - Preliminary NO GROWTH Resulted Laboratory Tests 06/09/19 14:00: Urine Color Yellow, Urine Appearance Clear, Urine pH 5, Urine Specific [employer] 1.025, Urine Protein 2+H, Urine Glucose (UA) 2+H, Urine Ketones Negative, Urine Blood 5+H, Urine Nitrite Negative, Urine Bilirubin Negative, Urine Urobilinogen Normal, Urine Leukocyte Esterase 3+H, Urine RBC TntcH, Urine WBC 20-30H, Urine Squamous Epithelial Cells Few, Urine Bacteria Few, Urine Eosinophils None seen, Urine Osmolality 796H, Urine Random Creatinine [Pending], Urine Random Microalbumin [Pending], Urine Random Sodium 84, Urine Microalbumin/Creatinine Ratio [Pending], Urine Legionella Antigen [Pending] 06/10/19 05:30: White Blood Count 11.2H, Red Blood Count 4.18L, Hemoglobin 13.2L, Hematocrit 38.7L, Mean Corpuscular Volume 93, Mean Corpuscular Hemoglobin 31.5H, Mean Corpuscular Hemoglobin Concent 34.0, Red Cell Distribution Width 10.7L, Platelet Count 217, Mean Platelet Volume 8.0, Neutrophils (%) (Auto) 71.0, Lymphocytes (%) (Auto) 18.6L, Monocytes (%) (Auto) 9.0, Eosinophils (%) (Auto) 0.8, Basophils (%) (Auto) 0.6, Erythrocyte Sedimentation Rate 77H, Sodium Level 141, Potassium Level 3.9, Chloride Level 104, Carbon Dioxide Level 26, Anion Gap 12, Blood Urea Nitrogen 16, Creatinine 1.2, Estimat Glomerular Filtration Rate > 60, Glucose Level 99, Calcium Level 8.8, Phosphorus Level 3.2, Magnesium Level 2.1, Total Bilirubin 0.7, Aspartate Amino Transf (AST/SGOT) 23, Alanine Aminotransferase (ALT/SGPT) 32, Alkaline Phosphatase 94, Troponin I 0.000, C- Reactive Protein, Quantitative 10.0H, Total Protein 6.4, Albumin 3.4, Globulin 3.0, Albumin/Globulin Ratio 1.1 Current Medications Medications (Trade) Dose Ordered Sig/Dee Route PRN Reason Start Time Stop Time Status Last Admin Dose Admin Acetaminophen (Tylenol) 650 mg Q4H PRN ORAL FEVER 06/08/19 21:45 07/08/19 21:44 06/09/19 20:06 Albuterol/ Ipratropium (Albuterol/ Ipratropium) 3 ml Q4H PRN HHN Shortness of Breath 06/08/19 21:45 06/13/19 21:44 Albuterol/ Ipratropium (Albuterol/ Ipratropium) 3 ml Q4HRT HHN 06/10/19 11:00 06/15/19 10:59 Aspirin (ASA) 162 mg DAILY ORAL 06/09/19 09:00 07/09/19 08:59 06/10/19 08:11 Azithromycin (Zithromax) 500 mg DAILY ORAL 06/10/19 09:00 06/17/19 08:59 06/10/19 08:11 Ceftriaxone Sodium 1 gm/ Dextrose 55 ml @ 110 mls/hr Q24H IVPB 06/09/19 16:00 06/16/19 15:59 06/09/19 16:07 Diltiazem HCl (Cardizem) 10 mg Q1H PRN IV heart rate more than 120, 06/08/19 21:45 07/08/19 21:44 Enalaprilat (Vasotec) 2.5 mg Q6H PRN IV sbp more than 160 06/08/19 21:45 07/08/19 21:44 Heparin Sodium (Porcine) (Heparin 5000 units/ml) 5,000 units EVERY 12 HOURS SUBQ 06/09/19 09:00 07/09/19 08:59 06/10/19 08:10 Morphine Sulfate (Morphine Sulfate) 2 mg Q4H PRN IVP severe Pain (Pain Scale 7-10) 06/08/19 21:45 06/15/19 21:44 06/09/19 02:02 Nitroglycerin (Ntg) 0.4 mg Q5M PRN SL Prn Chest Pain 06/08/19 21:45 07/08/19 21:44 Ondansetron HCl (Zofran) 4 mg Q6H PRN IVP Nausea & Vomiting 06/08/19 21:45 07/08/19 21:44 Polyethylene Glycol (Miralax) 17 gm DAILYPRN PRN ORAL Constipation 06/08/19 21:45 07/08/19 21:44 Promethazine HCl/ Codeine (Phenergan with Codeine) 5 ml Q4H PRN ORAL For Cough 06/09/19 11:45 07/09/19 11:44 Tamsulosin HCl (Flomax) 0.4 mg BEDTIME ORAL 06/09/19 21:00 07/09/19 20:59 06/09/19 20:58 Temazepam (Restoril) 15 mg HSPRN PRN ORAL Insomnia 06/08/19 21:45 06/15/19 21:44 Celia Blackman MD Jun 10, 2019 10:30
--- NOTE | 2019-06-10 10:47 | NUR ---
CASE MANAGEMENT:REVIEW 64 YR OLD MALE FROM HOME TO ER CC; CHEST PAIN PMH: S/P TURP SI: ACUTE CORONARY SYNDROME 98.1 93 16 139/81 98% ON RA WBC+14.5 CR+1.5 GLUCOSE+114 IS: ASA PO NTG 1/2 INCH IV MORPHINE IV TORADOL IV ZOFRAN CHEST XRAY : TO TELEMETRY 06/10/19 SI: PNEUMONIA. ACS. HEMATURIA 97.9 95 22 98/61 95% ON RA WBC+11.2 H/H-13.2/38.7 IS: IV ROCEPHIN Q24 AZITHROMYCIN PO QD DUONEB HHN RTC FLOMAX PO QHS ASA PO QD HEPARIN SQ Q12 : TELEMETRY STATUS DCP: PATIENT IS FROM HOME
[2019-06-10] MEDS ORDERED: Albuterol/Ipratropium 3ml neb HHN SCH ×2 (11:00→15:00)
--- NOTE | 2019-06-10 12:15 | NUR ---
TRANSFER TO FLOOR: Patient transferred to 4 E , per MD keating. Report given to nanette Stark. Belongings accounted for. Patient stable
--- NOTE | 2019-06-10 12:29 | NUR ---
NURSE NOTES: Received pt from Tel, pt awake, A/o x 4, calm, Denies SOB, complained of left chest pain, 3/10, refused med at this time, tolerating diet, no N/V. Belongings with pt, at bedside. encourage pt to use IS. call light within reach, bed in low position, will continue to monitor.
[2019-06-10] MEDS ORDERED: dilTIAZem HCl 25mg/5ml Inj IV PRN (12:45)
[2019-06-10] MEDS ORDERED: Nitroglycerin Subl 0.4mg tab SL PRN (12:45)
[2019-06-10] MEDS ORDERED: Albuterol/Ipratropium 3ml neb HHN PRN ×2 (13:00→16:45)
[2019-06-10] MEDS ORDERED: Morphine Sulfate 2mg/ml Inj(IV/IM USE ONLY) IVP PRN (13:00)
[2019-06-10] MEDS ORDERED: Enalaprilat 1.25mg/ml Inj IV PRN (13:00)
[2019-06-10] MEDS ORDERED: Promethazine/Codeine 5ml UD ORAL PRN (13:00)
[2019-06-10] MEDS ORDERED: Miralax 17gm pkt ORAL PRN (13:00)
[2019-06-10] MEDS: cefTRIAXone 1 GM in D5W 55 ML IVPB SCH (16:14)
--- NOTE | 2019-06-10 17:13 | Infectious Diseases Prog Note ---
Assessment/Plan Assessment/Plan Abx: Zosyn 06/09- Assessment: PNA (CAP) -CT chest: Left basilar atelectasis and possible infiltrate. Trace bilateral pleural effusions. Minimal right basilar atelectasis. Bilateral small lung nodules, as described. If there is significant smoking history, recommend 6-12 months short interval follow-up. Bilateral hydronephrosis versus parapelvic cysts, incompletely evaluated/included. 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 Consider contrast CT for better characterization. Correlation with any prior outside imaging that may be available would be useful. Trabeculated bladder, likely the basis of chronic bladder outlet obstruction. Evidence of prior TURP. Mild prostatomegaly. Questionable calcification seen within the left renal collecting system, could represent a nonobstructive calculus versus artifact HTN nephrolithiasis BPH s/p recent TURP Plan: -Cont Ceftriaxone and azithromycin #2/7 -upon discharge, can rebel transitioned to PO Cefdinir 300mg bid and Azithromycin 500mg qd -06/09 SP Zosyn #1 -f/u cx -Monitor CBC/CMP, temperatures -f/u sp cx, legionella ag urine Thank you for this consultation. Will continue to follow along with you. Discussed with RN. Subjective Allergies: Coded Allergies: No Known Allergies (Unverified , 08/25/18) Subjective Tm 101; afebrile >12hrs leukocytosis improved Objective Vital Signs Last 24 Hour Vital Signs Date Time Temp Pulse Resp B/P (MAP) Pulse Ox O2 Delivery O2 Flow Rate FiO2 06/10/19 16:18 99.0 06/10/19 16:00 98.5 81 18 130/76 (94) 95 06/10/19 14:47 88 18 99 Room Air 21 06/10/19 14:40 80 18 95 Room Air 21 06/10/19 12:30 99.0 90 18 117/75 (89) 96 06/10/19 12:00 97.9 98 21 131/81 (98) 95 06/10/19 11:24 87 19 99 Room Air 21 06/10/19 11:13 83 17 96 Room Air 21 06/10/19 11:11 82 17 96 Room Air 21 06/10/19 09:00 Room Air 06/10/19 08:00 91 06/10/19 08:00 97.9 95 22 98/61 (73) 95 06/10/19 07:21 95 Room Air 21 06/10/19 04:20 97.3 77 18 117/73 (88) 96 06/10/19 04:11 88 06/10/19 00:07 99.0 77 18 116/67 (83) 95 06/10/19 00:00 73 06/09/19 21:00 99.0 06/09/19 21:00 Room Air 06/09/19 20:36 99.0 06/09/19 20:00 101.0 91 18 108/68 (81) 96 06/09/19 20:00 88 06/09/19 19:45 95 Room Air 21 Height (Feet): 5 Height (Inches): 6.00 Weight (Pounds): 184 Objective General Appearance: WD/WN, no apparent distress, alert Lines, tubes and drains: peripheral HEENT: normocephalic, atraumatic Neck: non-tender, normal alignment Respiratory/Chest: chest wall non-tender, lungs clear Cardiovascular/Chest: normal peripheral pulses Abdomen: normal bowel sounds, non tender, soft Extremities: normal range of motion, normal inspection Skin Exam: normal pigmentation Neurologic: no motor/sensory deficits Microbiology Date/Time Source Procedure Growth Status 06/09/19 14:00 Urine,Clean Catch Urine Culture - Preliminary NO GROWTH Resulted Laboratory Tests Test 06/10/19 05:30 White Blood Count 11.2 K/UL (4.8-10.8) H Red Blood Count 4.18 M/UL (4.70-6.10) L Hemoglobin 13.2 G/DL (14.2-18.0) L Hematocrit 38.7 % (42.0-52.0) L Mean Corpuscular Volume 93 FL (80-99) Mean Corpuscular Hemoglobin 31.5 PG (27.0-31.0) H Mean Corpuscular Hemoglobin Concent 34.0 G/DL (32.0-36.0) Red Cell Distribution Width 10.7 % (11.6-14.8) L Platelet Count 217 K/UL (150-450) Mean Platelet Volume 8.0 FL (6.5-10.1) Neutrophils (%) (Auto) 71.0 % (45.0-75.0) Lymphocytes (%) (Auto) 18.6 % (20.0-45.0) L Monocytes (%) (Auto) 9.0 % (1.0-10.0) Eosinophils (%) (Auto) 0.8 % (0.0-3.0) Basophils (%) (Auto) 0.6 % (0.0-2.0) Erythrocyte Sedimentation Rate 77 MM/HR (0-20) H Sodium Level 141 MMOL/L (136-145) Potassium Level 3.9 MMOL/L (3.5-5.1) Chloride Level 104 MMOL/L (98-107) Carbon Dioxide Level 26 MMOL/L (21-32) Anion Gap 12 mmol/L (5-15) Blood Urea Nitrogen 16 mg/dL (7-18) Creatinine 1.2 MG/DL (0.55-1.30) Estimat Glomerular Filtration Rate > 60 mL/min (>60) Glucose Level 99 MG/DL (74-106) Calcium Level 8.8 MG/DL (8.5-10.1) Phosphorus Level 3.2 MG/DL (2.5-4.9) Magnesium Level 2.1 MG/DL (1.8-2.4) Total Bilirubin 0.7 MG/DL (0.2-1.0) Aspartate Amino Transf (AST/SGOT) 23 U/L (15-37) Alanine Aminotransferase (ALT/SGPT) 32 U/L (12-78) Alkaline Phosphatase 94 U/L (46-116) Troponin I 0.000 ng/mL (0.000-0.056) C-Reactive Protein, Quantitative 10.0 mg/dL (0.00-0.90) H Total Protein 6.4 G/DL (6.4-8.2) Albumin 3.4 G/DL (3.4-5.0) Globulin 3.0 g/dL Albumin/Globulin Ratio 1.1 (1.0-2.7) Current Medications Medications (Trade) Dose Ordered Sig/Dee Route PRN Reason Start Time Stop Time Status Last Admin Dose Admin Acetaminophen (Tylenol) 650 mg Q6H PRN ORAL Mild Pain/Temp > 100.5 06/10/19 15:45 07/10/19 15:44 06/10/19 15:48 Albuterol/ Ipratropium (Albuterol/ Ipratropium) 3 ml Q4H PRN HHN Shortness of Breath 06/10/19 16:45 06/15/19 16:44 Albuterol/ Ipratropium (Albuterol/ Ipratropium) 3 ml Q4HRT HHN 06/10/19 15:00 06/15/19 10:59 06/10/19 14:46 Aspirin (ASA) 162 mg DAILY ORAL 06/11/19 09:00 07/09/19 08:59 Azithromycin (Zithromax) 500 mg DAILY ORAL 06/11/19 09:00 06/17/19 08:59 Ceftriaxone Sodium 1 gm/ Dextrose 55 ml @ 110 mls/hr Q24H IVPB 06/10/19 16:00 06/16/19 15:59 06/10/19 16:14 Enalaprilat (Vasotec) 2.5 mg Q6H PRN IV sbp more than 160 06/10/19 13:00 07/08/19 12:59 Heparin Sodium (Porcine) (Heparin 5000 units/ml) 5,000 units EVERY 12 HOURS SUBQ 06/10/19 21:00 07/09/19 08:59 Morphine Sulfate (Morphine Sulfate) 2 mg Q4H PRN IVP severe Pain (Pain Scale 7-10) 06/10/19 13:00 06/15/19 12:59 Nitroglycerin (Ntg) 0.4 mg Q5MIN X 3 DOSES PRN SL Prn Chest Pain 06/10/19 12:45 07/10/19 12:44 Ondansetron HCl (Zofran) 4 mg Q6H PRN IVP Nausea & Vomiting 06/10/19 13:00 07/08/19 12:59 Polyethylene Glycol (Miralax) 17 gm DAILYPRN PRN ORAL Constipation 06/10/19 13:00 07/08/19 12:59 Promethazine HCl/ Codeine (Phenergan with Codeine) 5 ml Q4H PRN ORAL For Cough 06/10/19 13:00 07/09/19 12:59 Tamsulosin HCl (Flomax) 0.4 mg BEDTIME ORAL 06/10/19 21:00 07/09/19 20:59 Temazepam (Restoril) 15 mg HSPRN PRN ORAL Insomnia 06/10/19 21:00 06/15/19 20:59 Asha Bartholomew M.D. Jun 10, 2019 17:13
--- NOTE | 2019-06-10 19:32 | NUR ---
HAND-OFF: Report given to Ashvin MORRIS.
--- NOTE | 2019-06-10 19:45 | NUR ---
NURSE NOTES: Received report from ARTURO Sequeira. Patient is awake and alert x4, resting in bed. Patient is on room air with no signs of respiratory distress. Patient requesting pain medication. Will administer as ordered. Bed in lowest position, side rails up, call light within easy reach. IV intact. Will continue to monitor.
[2019-06-10] MEDS ORDERED: Tamsulosin 0.4mg cap ORAL SCH (21:00)
[2019-06-11] VITALS: BP 128/80
--- NOTE | 2019-06-11 00:01 | Internal Med Progress Note ---
Subjective Physician Name Trell Cisneros Attending Physician Trell Cisneros MD Current Medications Medications (Trade) Dose Ordered Sig/Dee Route PRN Reason Start Time Stop Time Status Last Admin Dose Admin Acetaminophen (Tylenol) 650 mg Q6H PRN ORAL Mild Pain/Temp > 100.5 06/10/19 15:45 07/10/19 15:44 06/10/19 15:48 Albuterol/ Ipratropium (Albuterol/ Ipratropium) 3 ml Q4H PRN HHN Shortness of Breath 06/10/19 16:45 06/15/19 16:44 Aspirin (ASA) 162 mg DAILY ORAL 06/11/19 09:00 07/09/19 08:59 Azithromycin (Zithromax) 500 mg DAILY ORAL 06/11/19 09:00 06/17/19 08:59 Ceftriaxone Sodium 1 gm/ Dextrose 55 ml @ 110 mls/hr Q24H IVPB 06/10/19 16:00 06/16/19 15:59 06/10/19 16:14 Enalaprilat (Vasotec) 2.5 mg Q6H PRN IV sbp more than 160 06/10/19 13:00 07/08/19 12:59 Heparin Sodium (Porcine) (Heparin 5000 units/ml) 5,000 units EVERY 12 HOURS SUBQ 06/10/19 21:00 07/09/19 08:59 06/10/19 20:39 Morphine Sulfate (Morphine Sulfate) 2 mg Q4H PRN IVP severe Pain (Pain Scale 7-10) 06/10/19 13:00 06/15/19 12:59 06/10/19 21:00 Nitroglycerin (Ntg) 0.4 mg Q5MIN X 3 DOSES PRN SL Prn Chest Pain 06/10/19 12:45 07/10/19 12:44 Ondansetron HCl (Zofran) 4 mg Q6H PRN IVP Nausea & Vomiting 06/10/19 13:00 07/08/19 12:59 Polyethylene Glycol (Miralax) 17 gm DAILYPRN PRN ORAL Constipation 06/10/19 13:00 07/08/19 12:59 Promethazine HCl/ Codeine (Phenergan with Codeine) 5 ml Q4H PRN ORAL For Cough 06/10/19 13:00 07/09/19 12:59 Tamsulosin HCl (Flomax) 0.4 mg BEDTIME ORAL 06/10/19 21:00 07/09/19 20:59 Temazepam (Restoril) 15 mg HSPRN PRN ORAL Insomnia 06/10/19 21:00 06/15/19 20:59 Allergies: Coded Allergies: No Known Allergies (Unverified , 08/25/18) Subjective awake, alert, responsive, less left chest wall pain, at bedside. Objective Last Vital Signs Date Time Temp Pulse Resp B/P (MAP) Pulse Ox O2 Delivery O2 Flow Rate FiO2 06/10/19 19:53 96 Room Air 21 06/10/19 16:18 99.0 06/10/19 16:00 81 18 130/76 (94) Laboratory Tests Test 06/10/19 05:30 White Blood Count 11.2 K/UL (4.8-10.8) H Red Blood Count 4.18 M/UL (4.70-6.10) L Hemoglobin 13.2 G/DL (14.2-18.0) L Hematocrit 38.7 % (42.0-52.0) L Mean Corpuscular Volume 93 FL (80-99) Mean Corpuscular Hemoglobin 31.5 PG (27.0-31.0) H Mean Corpuscular Hemoglobin Concent 34.0 G/DL (32.0-36.0) Red Cell Distribution Width 10.7 % (11.6-14.8) L Platelet Count 217 K/UL (150-450) Mean Platelet Volume 8.0 FL (6.5-10.1) Neutrophils (%) (Auto) 71.0 % (45.0-75.0) Lymphocytes (%) (Auto) 18.6 % (20.0-45.0) L Monocytes (%) (Auto) 9.0 % (1.0-10.0) Eosinophils (%) (Auto) 0.8 % (0.0-3.0) Basophils (%) (Auto) 0.6 % (0.0-2.0) Erythrocyte Sedimentation Rate 77 MM/HR (0-20) H Sodium Level 141 MMOL/L (136-145) Potassium Level 3.9 MMOL/L (3.5-5.1) Chloride Level 104 MMOL/L (98-107) Carbon Dioxide Level 26 MMOL/L (21-32) Anion Gap 12 mmol/L (5-15) Blood Urea Nitrogen 16 mg/dL (7-18) Creatinine 1.2 MG/DL (0.55-1.30) Estimat Glomerular Filtration Rate > 60 mL/min (>60) Glucose Level 99 MG/DL (74-106) Calcium Level 8.8 MG/DL (8.5-10.1) Phosphorus Level 3.2 MG/DL (2.5-4.9) Magnesium Level 2.1 MG/DL (1.8-2.4) Total Bilirubin 0.7 MG/DL (0.2-1.0) Aspartate Amino Transf (AST/SGOT) 23 U/L (15-37) Alanine Aminotransferase (ALT/SGPT) 32 U/L (12-78) Alkaline Phosphatase 94 U/L (46-116) Troponin I 0.000 ng/mL (0.000-0.056) C-Reactive Protein, Quantitative 10.0 mg/dL (0.00-0.90) H Total Protein 6.4 G/DL (6.4-8.2) Albumin 3.4 G/DL (3.4-5.0) Globulin 3.0 g/dL Albumin/Globulin Ratio 1.1 (1.0-2.7) Microbiology Date/Time Source Procedure Growth Status 06/09/19 14:00 Urine,Clean Catch Urine Culture - Preliminary NO GROWTH Resulted Intake and Output 06/10/19 06/11/19 19:00 07:00 Intake Total 240 ml Balance 240 ml Intake Oral 240 ml # Voids 2 Objective General: No acute distress, awake and alert HEENT: NCAT, sclera anicteric, PERRL, EOMI. Neck: Supple, no significant jugular venous distention, Lungs: Good inspiratory effort, no accessory muscle use, clear to auscultation bilaterally, no Wheeze or Rales. Chest Wall: Left side point tenderness. Heart: Regular rate and rhythm, normal S1/S2, no murmur, Abdomen: soft, nontender, nondistended. Normoactive bowel sounds. / Rectal: Refused and deferred. Extremities: No Cyanosis , clubbing or edema. Neuro: A&O x 3, Able to move all extremities Skin: warm, no rashes or lesions Psych: Normal mood and affect Assessment/Plan Assessment/Plan 1. Atypical chest pain, possibly due to the left lower lobe pneumonia. 2. History of benign prostatic hypertrophy, status post transurethral resection of prostate. 3. Bilateral hydronephrosis, most likely secondary to the bladder outlet obstruction and BPH. 4. Hypertension. 5. Urinary tract infection. PLAN: Transfer to Medicine floor. Follow up with Dr. Blackman, Pulmonary Critical Care consultation as well as Dr. Bartholomew from Infectious Disease. monitor laboratory as well as culture. DVT prophylaxis, heparin subcutaneous. Broad-spectrum antibiotic with Rocephin and Zithromax. Code status is Full Code. DC home in AM. 2D Echo: Normal left ventricular chamber size, systolic function and wall motion. Left ventricular ejection fraction estimated to be 55 %. No evidence of left ventricular hypertrophy. No evidence of pericardial effusion. All other cardiac chamber sizes are within normal limits. Focal aortic valve sclerosis with adequate cusp excursion. Thickened mitral valve leaflets with normal excursion. Mild mitral annulus and aortic root calcification. Pulmonic valve not well visualized. Normal tricuspid valve structure. IVC is normal in size with physiological collapse. A color flow and spectral Doppler study was performed and revealed: No aortic regurgitation. No mitral regurgitation. Mitral diastolic velocities suggest mild left ventricular diastolic dysfunction (Grade I). Trace tricuspid regurgitation. Tricuspid systolic velocities suggests peak right ventricular systolic pressure of 22 mmHg. No pulmonic regurgitation present. Trell Cisneros MD Jun 11, 2019 00:01
[2019-06-11 04:00] VITALS: BP 123/78
[2019-06-11 06:33] LABS: BASOPHILS % (AUTO) 0.7 % (0.0-2.0); EOSINOPHILS % (AUTO) 3.1 % (0.0-3.0); HEMATOCRIT 35.8 % (42.0-52.0); HEMOGLOBIN 12.3 G/DL (14.2-18.0); LYMPHOCYTES % (AUTO) 18.1 % (20.0-45.0); MEAN CORPUSCULAR VOLUME 92 FL (80-99); MONOCYTES % (AUTO) 8.7 % (1.0-10.0); NEUTROPHILS % (AUTO) 69.3 % (45.0-75.0); PLATELET COUNT 225 K/UL (150-450); RED BLOOD COUNT 3.89 M/UL (4.70-6.10); RED CELL DISTRIBUTION WIDTH 10.5 % (11.6-14.8); WHITE BLOOD COUNT 9.4 K/UL (4.8-10.8)
[2019-06-11 07:10] LABS: ALANINE AMINOTRANSFERASE 27 U/L (12-78); ALBUMIN 3.1 G/DL (3.4-5.0); ALBUMIN/GLOBULIN RATIO 0.9 (1.0-2.7); ALKALINE PHOSPHATASE 81 U/L (46-116); ANION GAP 9 mmol/L (5-15); ASPARTATE AMINO TRANSFERASE 18 U/L (15-37); BLOOD UREA NITROGEN 14 mg/dL (7-18); CALCIUM 8.8 MG/DL (8.5-10.1); CARBON DIOXIDE 26 MMOL/L (21-32); CHLORIDE 103 MMOL/L (98-107); CREATININE 1.1 MG/DL (0.55-1.30); PHOSPHORUS 3.5 MG/DL (2.5-4.9); POTASSIUM 3.6 MMOL/L (3.5-5.1); SODIUM 138 MMOL/L (136-145)
--- NOTE | 2019-06-11 07:33 | NUR ---
HAND-OFF: Report given to ARTURO Gonsalez.
[2019-06-11 07:36] LABS: BILIRUBIN,TOTAL 0.3 MG/DL (0.2-1.0)
--- NOTE | 2019-06-11 07:59 | NUR ---
NURSE NOTES: Patient is awake , alert and oriented,respirations unlabored,patient sitting up in the chair . Saline Lock to the left arm intact.Patient ate breakfast.Call light within reach.
[2019-06-11 08:00] VITALS: BP 127/77
[2019-06-11] MEDS: Heparin 5000 units/ml inj SUBQ SCH (08:19)
[2019-06-11] MEDS ORDERED: Aspirin Baby 81mg ORAL SCH (09:00)
[2019-06-11] MEDS ORDERED: Azithromycin 250mg tab ORAL SCH (09:00)
--- NOTE | 2019-06-11 11:33 | NUR ---
CASE MANAGEMENT:REVIEW 06/11/19 SI: ATYPICAL CHEST PAIN D/T LLL PNA BILATERAL HYDRONEPHROSIS. UTI 98.7 95 19 127/77 95% ON RA H/H-12.3/35.8 IS: IV ROCEPHIN Q24 AZITHROMYCIN PO QD ASA PO QD FLOMAX PO QHS : MED/SURG STATUS 4 EAST DCP: RETURN HOME
[2019-06-11 12:00] VITALS: BP 129/82
[2019-06-11] MEDS ORDERED: ZITHROMAX500 MG ORAL (12:52)
[2019-06-11] MEDS ORDERED: CEFDINIR300 MG PO (12:52)
--- NOTE | 2019-06-11 12:54 | Pulmonology Progress Note ---
Assessment/Plan Problems: (1) Pneumonia (2) ACS (acute coronary syndrome) (3) Hematuria (4) BPH (benign prostatic hyperplasia) (5) History of hypertension (6) S/P TURP Assessment/Plan wbc wnl continue abx, on Ceftriaxone and Zithromax respiratory treatment check sputum f/u wbc cardiology consult appreciated dvt prophylaxis. dc home with oral Cefdinir and Zithro as recommended by ID needs repeat CXR in 4-6 weeks. pt aware. Subjective ROS Limited/Unobtainable: No Constitutional: Reports: no symptoms HEENT: Repors: no symptoms Respiratory: Reports: no symptoms Allergies: Coded Allergies: No Known Allergies (Unverified , 08/25/18) Objective Last 24 Hour Vital Signs Date Time Temp Pulse Resp B/P (MAP) Pulse Ox O2 Delivery O2 Flow Rate FiO2 06/11/19 09:00 Room Air 06/11/19 08:40 96 Room Air 21 06/11/19 08:00 98.7 95 19 127/77 (94) 95 06/11/19 04:00 97.9 79 18 123/78 (93) 98 06/11/19 00:00 97.8 80 19 128/80 (96) 96 06/10/19 21:00 Room Air 06/10/19 20:00 97.3 79 20 127/76 (93) 96 06/10/19 19:53 96 Room Air 21 06/10/19 16:18 99.0 06/10/19 16:00 98.5 81 18 130/76 (94) 95 06/10/19 14:47 88 18 99 Room Air 21 06/10/19 14:40 80 18 95 Room Air 21 Intake and Output 06/10/19 06/11/19 19:00 07:00 Intake Total 240 ml Balance 240 ml Intake Oral 240 ml # Voids 2 2 General Appearance: WD/WN HEENT: atraumatic Respiratory/Chest: chest wall non-tender, lungs clear Cardiovascular: normal peripheral pulses, normal rate Abdomen: normal bowel sounds, soft, non tender Genitourinary: normal external genitalia Extremities: no clubbing Skin: no rash Microbiology Date/Time Source Procedure Growth Status 06/09/19 14:00 Urine,Clean Catch Urine Culture - Preliminary NO GROWTH AFTER 24 HOURS Resulted Laboratory Tests 06/11/19 05:25: White Blood Count 9.4, Red Blood Count 3.89L, Hemoglobin 12.3L, Hematocrit 35.8L , Mean Corpuscular Volume 92, Mean Corpuscular Hemoglobin 31.6H, Mean Corpuscular Hemoglobin Concent 34.4, Red Cell Distribution Width 10.5L, Platelet Count 225, Mean Platelet Volume 7.9, Neutrophils (%) (Auto) 69.3, Lymphocytes (%) (Auto) 18.1L, Monocytes (%) (Auto) 8.7, Eosinophils (%) (Auto) 3.1H, Basophils (%) (Auto) 0.7, Erythrocyte Sedimentation Rate 61H, Sodium Level 138, Potassium Level 3.6, Chloride Level 103, Carbon Dioxide Level 26, Anion Gap 9, Blood Urea Nitrogen 14, Creatinine 1.1, Estimat Glomerular Filtration Rate > 60, Glucose Level 91, Calcium Level 8.8, Phosphorus Level 3.5 , Magnesium Level 1.9, Total Bilirubin 0.3, Aspartate Amino Transf (AST/SGOT) 18 , Alanine Aminotransferase (ALT/SGPT) 27, Alkaline Phosphatase 81, C-Reactive Protein, Quantitative 7.1H, Total Protein 6.7, Albumin 3.1L, Globulin 3.6, Albumin/Globulin Ratio 0.9L Current Medications Medications (Trade) Dose Ordered Sig/Dee Route PRN Reason Start Time Stop Time Status Last Admin Dose Admin Acetaminophen (Tylenol) 650 mg Q6H PRN ORAL Mild Pain/Temp > 100.5 06/10/19 15:45 07/10/19 15:44 06/10/19 15:48 Albuterol/ Ipratropium (Albuterol/ Ipratropium) 3 ml Q4H PRN HHN Shortness of Breath 06/10/19 16:45 06/15/19 16:44 Aspirin (ASA) 162 mg DAILY ORAL 06/11/19 09:00 07/09/19 08:59 06/11/19 08:17 Azithromycin (Zithromax) 500 mg DAILY ORAL 06/11/19 09:00 06/17/19 08:59 06/11/19 08:18 Ceftriaxone Sodium 1 gm/ Dextrose 55 ml @ 110 mls/hr Q24H IVPB 06/10/19 16:00 06/16/19 15:59 06/10/19 16:14 Enalaprilat (Vasotec) 2.5 mg Q6H PRN IV sbp more than 160 06/10/19 13:00 07/08/19 12:59 Heparin Sodium (Porcine) (Heparin 5000 units/ml) 5,000 units EVERY 12 HOURS SUBQ 06/10/19 21:00 07/09/19 08:59 06/11/19 08:19 Morphine Sulfate (Morphine Sulfate) 2 mg Q4H PRN IVP severe Pain (Pain Scale 7-10) 06/10/19 13:00 06/15/19 12:59 06/10/19 21:00 Nitroglycerin (Ntg) 0.4 mg Q5MIN X 3 DOSES PRN SL Prn Chest Pain 06/10/19 12:45 07/10/19 12:44 Ondansetron HCl (Zofran) 4 mg Q6H PRN IVP Nausea & Vomiting 06/10/19 13:00 07/08/19 12:59 Polyethylene Glycol (Miralax) 17 gm DAILYPRN PRN ORAL Constipation 06/10/19 13:00 07/08/19 12:59 Promethazine HCl/ Codeine (Phenergan with Codeine) 5 ml Q4H PRN ORAL For Cough 06/10/19 13:00 07/09/19 12:59 Tamsulosin HCl (Flomax) 0.4 mg BEDTIME ORAL 06/10/19 21:00 07/09/19 20:59 Temazepam (Restoril) 15 mg HSPRN PRN ORAL Insomnia 06/10/19 21:00 06/15/19 20:59 Celia Blackman MD Jun 11, 2019 12:54
--- NOTE | 2019-06-11 13:45 | Infectious Diseases Prog Note ---
Assessment/Plan Assessment/Plan Abx: Zosyn 06/09- Assessment: PNA (CAP) -CT chest: Left basilar atelectasis and possible infiltrate. Trace bilateral pleural effusions. Minimal right basilar atelectasis. Bilateral small lung nodules, as described. If there is significant smoking history, recommend 6-12 months short interval follow-up. Bilateral hydronephrosis versus parapelvic cysts, incompletely evaluated/included. 2.5 cm right adrenal mass, attenuation of which is consistent with benign adenoma Leukocytosis, resolved -u/a wbc 20-30; ucx NTD Afebrile Chest pain WANDA, improving -Renal US; Bilateral mild hydronephrosis versus parapelvic cysts. Consider contrast CT for better characterization. Correlation with any prior outside imaging that may be available would be useful. Trabeculated bladder, likely the basis of chronic bladder outlet obstruction. Evidence of prior TURP. Mild prostatomegaly. Questionable calcification seen within the left renal collecting system, could represent a nonobstructive calculus versus artifact HTN nephrolithiasis BPH s/p recent TURP Plan: -Cont Ceftriaxone and azithromycin #3/ -upon discharge, can rebel transitioned to PO Cefdinir 300mg bid and Azithromycin 500mg qd -06/09 SP Zosyn #1 -f/u cx -Monitor CBC/CMP, temperatures -f/u sp cx, legionella ag urine Thank you for this consultation. Will continue to follow along with you. Discussed with RN. Subjective Allergies: Coded Allergies: No Known Allergies (Unverified , 08/25/18) Subjective afebrile >36hrs leukocytosis resolevd Objective Vital Signs Last 24 Hour Vital Signs Date Time Temp Pulse Resp B/P (MAP) Pulse Ox O2 Delivery O2 Flow Rate FiO2 06/11/19 09:00 Room Air 06/11/19 08:40 96 Room Air 21 06/11/19 08:00 98.7 95 19 127/77 (94) 95 06/11/19 04:00 97.9 79 18 123/78 (93) 98 06/11/19 00:00 97.8 80 19 128/80 (96) 96 06/10/19 21:00 Room Air 06/10/19 20:00 97.3 79 20 127/76 (93) 96 06/10/19 19:53 96 Room Air 21 06/10/19 16:18 99.0 06/10/19 16:00 98.5 81 18 130/76 (94) 95 06/10/19 14:47 88 18 99 Room Air 21 06/10/19 14:40 80 18 95 Room Air 21 Height (Feet): 5 Height (Inches): 6.00 Weight (Pounds): 184 Objective General Appearance: WD/WN, no apparent distress, alert Lines, tubes and drains: peripheral HEENT: normocephalic, atraumatic Neck: non-tender, normal alignment Respiratory/Chest: chest wall non-tender, lungs clear Cardiovascular/Chest: normal peripheral pulses Abdomen: normal bowel sounds, non tender, soft Extremities: normal range of motion, normal inspection Skin Exam: normal pigmentation Neurologic: no motor/sensory deficits Microbiology Date/Time Source Procedure Growth Status 06/09/19 14:00 Urine,Clean Catch Urine Culture - Preliminary NO GROWTH AFTER 24 HOURS Resulted Laboratory Tests Test 06/11/19 05:25 White Blood Count 9.4 K/UL (4.8-10.8) Red Blood Count 3.89 M/UL (4.70-6.10) L Hemoglobin 12.3 G/DL (14.2-18.0) L Hematocrit 35.8 % (42.0-52.0) L Mean Corpuscular Volume 92 FL (80-99) Mean Corpuscular Hemoglobin 31.6 PG (27.0-31.0) H Mean Corpuscular Hemoglobin Concent 34.4 G/DL (32.0-36.0) Red Cell Distribution Width 10.5 % (11.6-14.8) L Platelet Count 225 K/UL (150-450) Mean Platelet Volume 7.9 FL (6.5-10.1) Neutrophils (%) (Auto) 69.3 % (45.0-75.0) Lymphocytes (%) (Auto) 18.1 % (20.0-45.0) L Monocytes (%) (Auto) 8.7 % (1.0-10.0) Eosinophils (%) (Auto) 3.1 % (0.0-3.0) H Basophils (%) (Auto) 0.7 % (0.0-2.0) Erythrocyte Sedimentation Rate 61 MM/HR (0-20) H Sodium Level 138 MMOL/L (136-145) Potassium Level 3.6 MMOL/L (3.5-5.1) Chloride Level 103 MMOL/L (98-107) Carbon Dioxide Level 26 MMOL/L (21-32) Anion Gap 9 mmol/L (5-15) Blood Urea Nitrogen 14 mg/dL (7-18) Creatinine 1.1 MG/DL (0.55-1.30) Estimat Glomerular Filtration Rate > 60 mL/min (>60) Glucose Level 91 MG/DL (74-106) Calcium Level 8.8 MG/DL (8.5-10.1) Phosphorus Level 3.5 MG/DL (2.5-4.9) Magnesium Level 1.9 MG/DL (1.8-2.4) Total Bilirubin 0.3 MG/DL (0.2-1.0) Aspartate Amino Transf (AST/SGOT) 18 U/L (15-37) Alanine Aminotransferase (ALT/SGPT) 27 U/L (12-78) Alkaline Phosphatase 81 U/L (46-116) C-Reactive Protein, Quantitative 7.1 mg/dL (0.00-0.90) H Total Protein 6.7 G/DL (6.4-8.2) Albumin 3.1 G/DL (3.4-5.0) L Globulin 3.6 g/dL Albumin/Globulin Ratio 0.9 (1.0-2.7) L Current Medications Medications (Trade) Dose Ordered Sig/Dee Route PRN Reason Start Time Stop Time Status Last Admin Dose Admin Acetaminophen (Tylenol) 650 mg Q6H PRN ORAL Mild Pain/Temp > 100.5 06/10/19 15:45 07/10/19 15:44 06/10/19 15:48 Albuterol/ Ipratropium (Albuterol/ Ipratropium) 3 ml Q4H PRN HHN Shortness of Breath 06/10/19 16:45 06/15/19 16:44 Aspirin (ASA) 162 mg DAILY ORAL 06/11/19 09:00 07/09/19 08:59 06/11/19 08:17 Azithromycin (Zithromax) 500 mg DAILY ORAL 06/11/19 09:00 06/17/19 08:59 06/11/19 08:18 Ceftriaxone Sodium 1 gm/ Dextrose 55 ml @ 110 mls/hr Q24H IVPB 06/10/19 16:00 06/16/19 15:59 06/10/19 16:14 Enalaprilat (Vasotec) 2.5 mg Q6H PRN IV sbp more than 160 06/10/19 13:00 07/08/19 12:59 Heparin Sodium (Porcine) (Heparin 5000 units/ml) 5,000 units EVERY 12 HOURS SUBQ 06/10/19 21:00 07/09/19 08:59 06/11/19 08:19 Morphine Sulfate (Morphine Sulfate) 2 mg Q4H PRN IVP severe Pain (Pain Scale 7-10) 06/10/19 13:00 06/15/19 12:59 06/10/19 21:00 Nitroglycerin (Ntg) 0.4 mg Q5MIN X 3 DOSES PRN SL Prn Chest Pain 06/10/19 12:45 07/10/19 12:44 Ondansetron HCl (Zofran) 4 mg Q6H PRN IVP Nausea & Vomiting 06/10/19 13:00 07/08/19 12:59 Polyethylene Glycol (Miralax) 17 gm DAILYPRN PRN ORAL Constipation 06/10/19 13:00 07/08/19 12:59 Promethazine HCl/ Codeine (Phenergan with Codeine) 5 ml Q4H PRN ORAL For Cough 06/10/19 13:00 07/09/19 12:59 Tamsulosin HCl (Flomax) 0.4 mg BEDTIME ORAL 06/10/19 21:00 07/09/19 20:59 Temazepam (Restoril) 15 mg HSPRN PRN ORAL Insomnia 06/10/19 21:00 06/15/19 20:59 Asha Bartholomew M.D. Jun 11, 2019 13:45
--- NOTE | 2019-06-11 14:53 | Internal Med Progress Note ---
Subjective Physician Name Trell Cisneros Attending Physician Trell Cisneros MD Current Medications Medications (Trade) Dose Ordered Sig/Dee Route PRN Reason Start Time Stop Time Status Last Admin Dose Admin Acetaminophen (Tylenol) 650 mg Q6H PRN ORAL Mild Pain/Temp > 100.5 06/10/19 15:45 07/10/19 15:44 06/10/19 15:48 Albuterol/ Ipratropium (Albuterol/ Ipratropium) 3 ml Q4H PRN HHN Shortness of Breath 06/10/19 16:45 06/15/19 16:44 Aspirin (ASA) 162 mg DAILY ORAL 06/11/19 09:00 07/09/19 08:59 06/11/19 08:17 Azithromycin (Zithromax) 500 mg DAILY ORAL 06/11/19 09:00 06/17/19 08:59 06/11/19 08:18 Ceftriaxone Sodium 1 gm/ Dextrose 55 ml @ 110 mls/hr Q24H IVPB 06/10/19 16:00 06/16/19 15:59 06/10/19 16:14 Enalaprilat (Vasotec) 2.5 mg Q6H PRN IV sbp more than 160 06/10/19 13:00 07/08/19 12:59 Heparin Sodium (Porcine) (Heparin 5000 units/ml) 5,000 units EVERY 12 HOURS SUBQ 06/10/19 21:00 07/09/19 08:59 06/11/19 08:19 Morphine Sulfate (Morphine Sulfate) 2 mg Q4H PRN IVP severe Pain (Pain Scale 7-10) 06/10/19 13:00 06/15/19 12:59 06/10/19 21:00 Nitroglycerin (Ntg) 0.4 mg Q5MIN X 3 DOSES PRN SL Prn Chest Pain 06/10/19 12:45 07/10/19 12:44 Ondansetron HCl (Zofran) 4 mg Q6H PRN IVP Nausea & Vomiting 06/10/19 13:00 07/08/19 12:59 Polyethylene Glycol (Miralax) 17 gm DAILYPRN PRN ORAL Constipation 06/10/19 13:00 07/08/19 12:59 Promethazine HCl/ Codeine (Phenergan with Codeine) 5 ml Q4H PRN ORAL For Cough 06/10/19 13:00 07/09/19 12:59 Tamsulosin HCl (Flomax) 0.4 mg BEDTIME ORAL 06/10/19 21:00 07/09/19 20:59 Temazepam (Restoril) 15 mg HSPRN PRN ORAL Insomnia 06/10/19 21:00 06/15/19 20:59 Allergies: Coded Allergies: No Known Allergies (Unverified , 08/25/18) Subjective awake, alert, responsive, feeling better, at bedside. Objective Last Vital Signs Date Time Temp Pulse Resp B/P (MAP) Pulse Ox O2 Delivery O2 Flow Rate FiO2 06/11/19 09:00 Room Air 06/11/19 08:40 96 21 06/11/19 08:00 98.7 95 19 127/77 (94) Laboratory Tests Test 06/11/19 05:25 White Blood Count 9.4 K/UL (4.8-10.8) Red Blood Count 3.89 M/UL (4.70-6.10) L Hemoglobin 12.3 G/DL (14.2-18.0) L Hematocrit 35.8 % (42.0-52.0) L Mean Corpuscular Volume 92 FL (80-99) Mean Corpuscular Hemoglobin 31.6 PG (27.0-31.0) H Mean Corpuscular Hemoglobin Concent 34.4 G/DL (32.0-36.0) Red Cell Distribution Width 10.5 % (11.6-14.8) L Platelet Count 225 K/UL (150-450) Mean Platelet Volume 7.9 FL (6.5-10.1) Neutrophils (%) (Auto) 69.3 % (45.0-75.0) Lymphocytes (%) (Auto) 18.1 % (20.0-45.0) L Monocytes (%) (Auto) 8.7 % (1.0-10.0) Eosinophils (%) (Auto) 3.1 % (0.0-3.0) H Basophils (%) (Auto) 0.7 % (0.0-2.0) Erythrocyte Sedimentation Rate 61 MM/HR (0-20) H Sodium Level 138 MMOL/L (136-145) Potassium Level 3.6 MMOL/L (3.5-5.1) Chloride Level 103 MMOL/L (98-107) Carbon Dioxide Level 26 MMOL/L (21-32) Anion Gap 9 mmol/L (5-15) Blood Urea Nitrogen 14 mg/dL (7-18) Creatinine 1.1 MG/DL (0.55-1.30) Estimat Glomerular Filtration Rate > 60 mL/min (>60) Glucose Level 91 MG/DL (74-106) Calcium Level 8.8 MG/DL (8.5-10.1) Phosphorus Level 3.5 MG/DL (2.5-4.9) Magnesium Level 1.9 MG/DL (1.8-2.4) Total Bilirubin 0.3 MG/DL (0.2-1.0) Aspartate Amino Transf (AST/SGOT) 18 U/L (15-37) Alanine Aminotransferase (ALT/SGPT) 27 U/L (12-78) Alkaline Phosphatase 81 U/L (46-116) C-Reactive Protein, Quantitative 7.1 mg/dL (0.00-0.90) H Total Protein 6.7 G/DL (6.4-8.2) Albumin 3.1 G/DL (3.4-5.0) L Globulin 3.6 g/dL Albumin/Globulin Ratio 0.9 (1.0-2.7) L Microbiology Date/Time Source Procedure Growth Status 06/09/19 14:00 Urine,Clean Catch Urine Culture - Preliminary NO GROWTH AFTER 24 HOURS Resulted Intake and Output 06/10/19 06/11/19 19:00 07:00 Intake Total 240 ml Balance 240 ml Intake Oral 240 ml # Voids 2 2 Objective General: No acute distress, awake and alert HEENT: NCAT, sclera anicteric, PERRL, EOMI. Neck: Supple, no significant jugular venous distention, Lungs: Good inspiratory effort, no accessory muscle use, clear to auscultation bilaterally, no Wheeze or Rales. Chest Wall: Left side point tenderness. Heart: Regular rate and rhythm, normal S1/S2, no murmur, Abdomen: soft, nontender, nondistended. Normoactive bowel sounds. / Rectal: Refused and deferred. Extremities: No Cyanosis , clubbing or edema. Neuro: A&O x 3, Able to move all extremities Skin: warm, no rashes or lesions Psych: Normal mood and affect Assessment/Plan Assessment/Plan 1. Atypical chest pain, possibly due to the left lower lobe pneumonia. 2. History of benign prostatic hypertrophy, status post transurethral resection of prostate. 3. Bilateral hydronephrosis, most likely secondary to the bladder outlet obstruction and BPH. 4. Hypertension. 5. Urinary tract infection. PLAN: Transfer to Medicine floor. Follow up with Dr. Blackman, Pulmonary Critical Care consultation as well as Dr. Bartholomew from Infectious Disease. monitor laboratory as well as culture. DVT prophylaxis, heparin subcutaneous. Broad-spectrum antibiotic with Rocephin and Zithromax. Code status is Full Code. DC home today with PO Cefdinir 300mg bid and Azithromycin 500mg qd 2D Echo: Normal left ventricular chamber size, systolic function and wall motion. Left ventricular ejection fraction estimated to be 55 %. No evidence of left ventricular hypertrophy. No evidence of pericardial effusion. All other cardiac chamber sizes are within normal limits. Focal aortic valve sclerosis with adequate cusp excursion. Thickened mitral valve leaflets with normal excursion. Mild mitral annulus and aortic root calcification. Pulmonic valve not well visualized. Normal tricuspid valve structure. IVC is normal in size with physiological collapse. A color flow and spectral Doppler study was performed and revealed: No aortic regurgitation. No mitral regurgitation. Mitral diastolic velocities suggest mild left ventricular diastolic dysfunction (Grade I). Trace tricuspid regurgitation. Tricuspid systolic velocities suggests peak right ventricular systolic pressure of 22 mmHg. No pulmonic regurgitation present. Trell Cisneros MD Jun 11, 2019 14:53
--- NOTE | 2019-06-11 15:30 | NUR ---
INSURANCE REVIEWS FAXED TO [facility] ADMISSION REPORTED TO :RODOLFO Bailey @ [employer] TRACKING:[id number] DAYS : 2 DAYS APPROVED NCM:NONE IF PT IS NOT DISCHARGED BY 06/10 PLEASE FAX CLINICALS TO Addendum: 06/11/19 at 1532 by Aura Stovall CM DC ORDER FAXED ALONG WITH REVIEWS
[2019-06-11] MEDS: cefTRIAXone 1 GM in D5W 55 ML IVPB SCH (16:12)
[2019-06-11 16:34] VITALS: BP 138/82
--- NOTE | 2019-06-11 17:48 | NUR ---
NURSE NOTES: Discharge at this time with discharge instructions given.IV saline lock removed.Patient has personal belongings.patient has dischage prescription Patient accompany down to lobby,patient spouse will take patient home.
--- NOTE | 2019-06-13 12:44 | Discharge Summary ---
Discharge Summary Discharge Summary _ DATE OF ADMISSION: 06/08/2019 DATE OF DISCHARGE: 06/11/2019 DISCHARGED BY: Dr. Cisneros REASON FOR ADMISSION: 64 years old male with past medical history of hypertension, BPH, status post TURP in May 2019 , presented to the hospital complaining of left-sided chest pain. According to patient , chest pain woke him up around 3:00 in the morning. Patient reported chest pain localized to the left side of the chest wall, substernal, 5 out of 10 on a scale 1-10. Shortly after initial evaluation patient was noted to have left lower lobe pneumonia on chest x-ray, confirmed by the CT of the chest. Laboratory work-up revealed leukocytosis with WBC 14.5, stable hemoglobin and hematocrit. Troponin negative. EKG revealed sinus rhythm, no acute ischemic changes. BUN 16, creatinine 1.5. Glucose 114. Patient subsequently admitted to telemetry floor for further evaluation and management. CONSULTANTS: chiller operator Dr. Deluca pulmonary Dr. Blackman ID specialist Dr. Bartholomew [facility]: Patient admitted to telemetry floor. Instructional Design Technologist followed. Serial troponin were negative. EKG revealed sinus rhythm, no acute ischemic changes. Patient was ruled out for acute myocardial infarction. Echocardiogram revealed preserved ejection fraction 55% with no evidence of left ventricular hypertrophy. No evidence of pericardial effusion. No evidence of wall motion abnormality. Right ventricular systolic pressure of 22. Lipid panel revealed elevated LDL 112 with stable total cholesterol and triglycerides. HDL 45. Patient was educated on lifestyle modification as to diet and exercise: low- fat low-cholesterol diet and increase exercise level TSH within normal limits. Per cardiology, chest pain was either musculoskeletal or pulmonary. He doubted ischemic pain. No further work-up was necessarily at this time as per chiller operator. Antiplatelet therapy with aspirin continued. DVT prophylaxis provided. Supplemental oxygen provided as needed to keep pulse oximetry above 92%. Pulmonary toilet provided as needed. Patient started on empiric antibiotic as per ID specialist recommendation. Leukocytosis resolved. Urine Legionella antigen negative. Blood culture was negative. Urine culture revealed gram-positive cocci. Patient was on ceftriaxone and azithromycin for treatment of symptoms community- acquired pneumonia. ID specialist recommended upon discharge transition to oral cefdinir 300 mg twice daily and azithromycin 500 mg every day to complete the course. Leukocytosis resolved ,no fever. Renal ultrasound revealed bilateral mild hydronephrosis versus parapelvic cyst. Trabeculated bladder, likely the basis of chronic bladder outlet obstruction. Evidence of prior TURP. Mild prostatomegaly. 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 Renal parameters and electrolytes were closely monitored. Electrolytes corrected as needed, nephrotoxins were avoided. Prior to discharge creatinine from 1.5 down to 1.1. Acute kidney injury resolved. Patient clinically stabilized and was ready for discharge home. Complete antibiotic course at home. FINAL DIAGNOSES: Atypical chest pain possibly due to left lower lobe pneumonia and /or musculoskeletal Pneumonia/community-acquired pneumonia. Acute kidney injury- resolved BPH status post TURP Bilateral hydronephrosis , most likely secondary to bladder outlet obstruction and BPH Hypertension Possible UTI DISCHARGE MEDICATIONS: See Medication Reconciliation list. DISCHARGE INSTRUCTIONS: Patient was discharged home Follow up with primary care provider in one week. I have been assigned to dictate discharge summary for this account. I was not involved in the patient's management. Reyan Dos Santos NP Jun 13, 2019 12:44
== END 2019-06-11 17:45 | disposition home or self-care (01) | DRG 194 ==
LOC: EMR 20:25 → 2E 20:30 → EDBEDREQ 20:49 → 2E 06-09 00:26 → 4E 06-10 12:26
DX: J18.9 Pneumonia, unspecified organism (principal); N17.9 Acute kidney failure, unspecified; N13.8 Other obstructive and reflux uropathy; N39.0 Urinary tract infection, site not specified; N13.2 Hydronephrosis with renal and ureteral calculous obstruction; N40.1 Benign prostatic hyperplasia with lower urinary tract symptoms; N32.0 Bladder-neck obstruction; I10 Essential (primary) hypertension
CPT/HCPCS: 36415; 71045; 71250; 76770; 80053; 80061; 81001; 82043; 82164; 82550; 82553; 83735; 83880; 83935; 84100; 84300; 84443; 84484; 84550; 85025; 85610; 85651; 85730; 86140; 87086; 89050; 93005; 93306; 94640; 94664; 96374; 99285; J2405; J7620

== ENCOUNTER 2020-08-16 05:26 | Inpatient (IN) | payer BC, MEDICARE ==
[~2020-08-16] VITALS: Ht 165.1 cm; Wt 87.4 kg
[2020-08-16] VITALS (14 sets, daily range): BP systolic 107–133; BP diastolic 54–86
[~2020-08-16 05:26] MED LIST changes: +BENICAR20 MG ORAL; +CEFDINIR300 MG PO; +ZITHROMAX500 MG ORAL; +potassium PO
--- NOTE | 2020-08-16 06:55 | Anethesia Preoperative Eval ---
Anesthesia Pre-op PMH/ROS General Date of Evaluation: Aug 16, 2020 Time of Evaluation: 07:47 Anesthesiologist: Iftikhar ASA Score: ASA 3 Mallampati Score Class I : Soft palate, uvula, fauces, pillars visible Class II: Soft palate, uvula, fauces visible Class III: Soft palate, base of uvula visible Class IV: Only hard plate visible Mallampati Classification: Class II Surgeon: Flakita Diagnosis: Prostate CA Surgical Procedure: Lparocopic Radical Prostectomy Anesthesia History: none Family History: no anesthesia problems Allergies: Coded Allergies: No Known Allergies (Unverified , 08/25/18) Medications: see eMAR Patient NPO?: Yes Past Medical History Cardiovascular: Reports: HTN, other - HL Gastrointestinal/Genitourinary: Reports: GERD, other - Prostae CA HEENT: Reports: cataract (L), cataract (R) Hematology/Immune: Reports: anemia Other: obesity - BMI 32 PSxH Narrative: L Knee SX, Renal Stones, Septoplasty Anesthesia Pre-op Phys. Exam Physician Exam Last Vital Signs Date Time Temp Pulse Resp B/P (MAP) Pulse Ox O2 Delivery O2 Flow Rate FiO2 08/16/20 06:01 Room Air 08/16/20 05:48 97.4 63 18 133/86 (102) 98 Constitutional: NAD Neurologic: CN 2-12 intact Cardiovascular: RRR Respiratory: CTA Gastrointestinal: S/NT/ND Airway Exam Mallampati Score: Class II MO: full ROM: limited Teeth: missing, intact Anesthesia Pre-op A/P Risk Assessment & Plan Assessment: ASA 3 Plan: GA, SED, GlideScope Status Change Before Surgery: No Pre-Antibiotics Dru Grams Ancef IV Given Within 1 Hr of Incision: Yes Time Given: 08:06 Truman Buitrago MD Aug 16, 2020 06:55
--- NOTE | 2020-08-16 06:56 | Immediate Post-Op Evaluation ---
Immediate Post-Op Evalulation Immediate Post-Op Evalulation Procedure: Lparocopic Radical Prostectomy Date of Evaluation: Aug 16, 2020 Time of Evaluation: 11:32 IV Fluids: 2200 LR Blood Products: 0 Estimated Blood Loss: 200 Urinary Output: 300 Blood Pressure Systolic: 107 Blood Pressure Diastolic: 63 Pulse Rate: 64 Respiratory Rate: 16 O2 Sat by Pulse Oximetry: 100 Temperature (Fahrenheit): 97.3 Pain Score (1-10): 2 Nausea: No Vomiting: No Complications 0 Patient Status: awake, reacts, patent, none Hydration Status: adequate Dru Grams Ancef IV Given Within 1 Hr of Incision: Yes Time Given: 08:06 Truman Buitrago MD Aug 16, 2020 06:56
[2020-08-16] MEDS ORDERED: LR 1000ml 1,000 ML IVLG SCH (07:00)
[2020-08-16] MEDS ORDERED: HYDROcodone/Acetamin 7.5/325 tab ORAL PRN (07:00)
[2020-08-16] MEDS ORDERED: Midazolam 2mg/2ml Inj IVP PRN (07:00)
[2020-08-16] MEDS ORDERED: HYDROcodone/Acetamin 5/325 tab ORAL PRN (07:00)
[2020-08-16] MEDS ORDERED: Acetaminophen (Non formulary) 100 ML IV ONE (07:00)
[2020-08-16] MEDS ORDERED: Ketorolac 30mg Inj IV PRN ×3 (07:00→11:30)
[2020-08-16] MEDS ORDERED: LORazepam Inj 2mg/ml 1ml IV PRN (07:00)
[2020-08-16] MEDS ORDERED: Atropine Sulfate 0.4mg/ml inj IVP PRN (07:00)
[2020-08-16] MEDS ORDERED: Hydromorphone 0.5mg/0.5ml inj IVP PRN (07:00)
[2020-08-16] MEDS ORDERED: oxyCODONE HCL/Acetaminophen 5/325mg ORAL PRN (07:00)
[2020-08-16] MEDS ORDERED: ceFAZolin sod 1 GM in NS 55 ML IVPB ONE (07:00)
[2020-08-16] MEDS ORDERED: DiphenhydrAMINE 50mg/ml Inj IVP PRN (07:00)
[2020-08-16] MEDS ORDERED: Labetalol 5mg/ml 20ml vial IV PRN (07:00)
[2020-08-16] MEDS ORDERED: Rocuronium Bromide 50mg/5ml Inj IV ONE (07:01)
[2020-08-16] MEDS ORDERED: Sodium Chloride 10ml vial INJ ONE (07:06)
[2020-08-16] MEDS ORDERED: Lidocaine 1% MPF 10mg/ml 5ml ONE ×2 (07:06→09:21)
[2020-08-16] MEDS ORDERED: Midazolam 2mg/2ml Inj ONE (07:07)
[2020-08-16] MEDS ORDERED: fentaNYL 100 mcg/2 mL IV ONE ×3 (07:07→11:15)
[2020-08-16] MEDS ORDERED: Bupivacaine 0.5% Inj 30 ml vial INJ ONE (07:27)
[2020-08-16] MEDS ORDERED: ProvayBlue 5mg/ml 10ml amp INJ ONE (07:30)
[2020-08-16] MEDS ORDERED: Glycopyrrolate 0.2mg/ml 1ml Vial ONE (08:00)
[2020-08-16] MEDS ORDERED: Neostigmine 1mg/ml 10ml Inj ONE (08:00)
[2020-08-16] MEDS ORDERED: NS Irrig 1000ml ONE (08:00)
[2020-08-16] MEDS ORDERED: Sterile Water Irrig 1000ml IRRIG ONE (08:00)
[2020-08-16] MEDS ORDERED: LR 1000ml ONE (08:00)
--- NOTE | 2020-08-16 08:05 | Pre-Procedure Note/Attestation ---
Pre-Procedure Note/Attestation Complete Prior to Procedure Planned Procedure: not applicable Procedure Narrative: Laparoscopic Radical prostatectomy Indications for Procedure Pre-Operative Diagnosis: prostate cancer Attestation I attest that I discussed the nature of the procedure; its benefits; risks and complications; and alternatives (and the risks and benefits of such alternatives), prior to the procedure, with the patient (or the patient's legal internet sales representative). I attest that, if there was a reasonable possibility of needing a blood transfusion, the patient (or the patient's legal internet sales representative) was given the [facility] standardized written summary, pursuant to the Elijah Jennifer Blood Safety Act ([place] Health and Safety Code # 1645, as amended). I attest that I re-evaluated the patient just prior to the surgery and that there has been no change in the patient's H&P, except as documented below: Baljit Boggs MD Aug 16, 2020 08:04
[2020-08-16] MEDS ORDERED: NS Irrig 1000ml IRRIG ONE (09:08)
--- NOTE | 2020-08-16 11:40 | Brief Operative Note ---
Immediate Post Operative Note Operative Note Pre-op Diagnosis: prostate cancer Procedure: laparoscopic radical prostatectomy Post-op Diagnosis: same Post-op Diagnosis: same as pre-op Surgeon: Jarred boggs Anesthesia: general Specimen: yes Complications: none Condition: stable Fluids: 2000 Estimated Blood Loss: minimal Drains: none Implant(s) used?: No Baljit Boggs MD Aug 16, 2020 11:40
--- NOTE | 2020-08-16 12:50 | NUR ---
NURSE NOTES: Patient arrived on unit. Stable. Breathing is even and unlabored, on 2L oxygen via nc. Patient c/o pain and nausea, will administer pain medication and nausea medication as ordered. Patient AOx4, able to verbalize needs. Patient oriented to room, call light, and unit. Patient instructed to use call light for assistance, verbalized understanding. 5 lap sites noted on abdomen, medial dressing stained. F/C patent and draining green urine. Patient is in bed in locked and lowest position with call light within reach. All safety measures provided. Will continue to monitor.
[2020-08-16] MEDS: HYDROmorphone 1mg/ml Carpuject IVP PRN ×2 (13:13→19:21)
--- NOTE | 2020-08-16 14:01 | NUR ---
CASE MANAGEMENT: INITIAL REVIEW 65YR OLD MALE FROM HOME HERE FOR SCHEDULED SURGERY CC:PROSTATE CANCER SI:PROSTATE CANCER 97.4 63 18 133/86 96% ON RA IS:IVF NS BOLUS X1 IN SURGERY NOW LAPAROSCOPIC RADICAL PROCTECTOMY \: 3E MED SURG UNIT DCP: HOME WHEN STABLE PLAN: NPO ADVANCE DIET TOLERATED CONT ENCOURAGE INCENTIVE SPIROMETER NEURO CHECKS F/U PT EVAL AND THERAPY RECOMMENDATION DVT PROPHYLAXIS ENCOURAGE AMBULATION WHEN INSTRUCTED Addendum: 08/16/20 at 1412 by KEVIN WAHL LVN INTERQUAL MET ACUTE
[2020-08-16] MEDS: D5 1/2NS w/KCl 20mEq 1,000 ML IV SCH ×2 (14:10→23:31)
--- NOTE | 2020-08-16 14:11 | NUR ---
*-* INSURANCE *-* UPDATED CLINICALS AND REVIEWS HAVE BEEN FAXED TO: [facility] Ref# [id number] #[phone] fax# [phone]
--- NOTE | 2020-08-16 14:15 | NUR ---
*-* INSURANCE *-* UPDATED CLINICALS AND REVIEWS HAVE BEEN FAXED TO: [facility] Ref# [id number] #[phone] fax# [phone]
--- NOTE | 2020-08-16 14:43 | Consultation ---
History of Present Illness General Date patient seen: Aug 16, 2020 Present Illness HPI This is a 65-year-old male with prostate cancer who was scheduled to have a laparoscopic radical prostatectomy today with Dr. Baljit Segura scheduled for 08/16/2020 at which time I was asked to assist in care and management the patient from a surgical aspect. Please refer to operative note for details. After successful radical laparoscopic prostatectomy there is no intraoperative complications identified no bowel injury identified and no requirement for bowel repair. Patient has a Knott catheter inserted and undergoing recovery. Otherwise currently stable on no events. Chart reviewed in detail operative Case reviewed we will continue to follow patient and assist with care and management. Allergies: Coded Allergies: No Known Allergies (Unverified , 08/25/18) COVID-19 Screening Contact w/high risk pt: No Experienced COVID-19 symptoms?: No Medication History Scheduled [potassium], 2 TAB-CAP PO DAILY, (Reported) Discontinued Medications Azithromycin (Zithromax), 500 MG ORAL DAILY Discontinued Reason: Therapy completed Cefdinir (Cefdinir), 300 MG PO BID Discontinued Reason: Therapy completed Olmesartan Medoxomil (Benicar), 20 MG ORAL DAILY, (Reported) Discontinued Reason: Therapy completed Tamsulosin Hcl (Tamsulosin Hcl*), 0.4 MG ORAL BEDTIME, (Reported) Discontinued Reason: MD discontinued med [Vit D], 2,000 DAILY, (Reported) Discontinued Reason: Pt stopped taking med Patient History History Provided By: Patient, Medical Record, PMD Healthcare decision maker Resuscitation status Advanced Directive on File Past Medical/Surgical History Past Medical/Surgical History: (1) Pneumonia (2) ACS (acute coronary syndrome) (3) Hematuria (4) Left-sided chest pain (5) Chest pain (6) BPH (benign prostatic hyperplasia) (7) History of hypertension (8) S/P TURP Review of Systems Review of Symptoms General ROS: no weight loss or fever Psychological ROS: no depression or mood changes, no memory loss Ophthalmic ROS: no visual changes or eye irritation ENT ROS: no nasal congestion, hearing loss, dizziness Allergy and Immunology ROS: no allergic symptoms or urticaria Hematological and Lymphatic ROS: no swollen glands, unusual bleeding or bruising Endocrine ROS: no polyuria, polydipsia, weight changes, temperature intolerance Respiratory ROS: no cough, shortness of breath, or wheezing Cardiovascular ROS: no chest pain or dyspnea on exertion Gastrointestinal ROS: denies abdominal pain, bright red blood in stool. Musculoskeletal ROS: no myalgias or arthralgias Neurological ROS: no TIA or stroke symptoms Dermatological ROS: no new or changing skin lesions, rashes or pruritis Physical Exam Physical Exam General appearance: alert, cooperative, no distress, appears stated age Head: Normocephalic, without obvious abnormality, atraumatic Eyes: conjunctivae/corneas clear. PERRL, EOM's intact. Fundi benign Throat: Lips, mucosa, and tongue normal. Teeth and gums normal Neck: supple, symmetrical, trachea midline, no adenopathy, thyroid: not enlarged, symmetric, no tenderness/mass/nodules, no carotid bruit and no JVD Lungs: clear to auscultation bilaterally Heart: regular rate and rhythm, S1, S2 normal, no murmur, click, rub or gallop Abdomen: soft, incisions c/d/i Extremities: extremities normal, atraumatic, no cyanosis or edema Pulses: 2+ and symmetric Skin: Skin color, texture, turgor normal. No rashes or lesions Neurologic: Grossly normal Last 24 Hour Vital Signs Date Time Temp Pulse Resp B/P (MAP) Pulse Ox O2 Delivery O2 Flow Rate FiO2 08/16/20 12:54 97.8 91 20 122/69 (86) 100 08/16/20 12:31 63 20 133/86 99 08/16/20 12:30 97.8 63 19 133/86 100 Nasal Cannula 3 08/16/20 12:24 97.4 08/16/20 12:20 70 19 126/69 100 Nasal Cannula 3 08/16/20 12:05 70 22 111/66 98 Nasal Cannula 3 08/16/20 12:01 68 25 111/63 100 08/16/20 11:50 60 13 107/54 100 Nasal Cannula 3 08/16/20 11:40 58 12 112/63 100 Simple Mask 6 08/16/20 11:30 60 17 111/57 100 Simple Mask 6 08/16/20 11:25 60 15 110/62 100 Simple Mask 6 08/16/20 11:24 64 16 100 08/16/20 11:23 97.3 63 25 107/63 100 Simple Mask 6 08/16/20 06:01 Room Air 08/16/20 05:48 97.4 63 18 133/86 (102) 98 Intake and Output 08/15/20 08/16/20 19:00 07:00 # Voids 1 Height (Feet): 5 Height (Inches): 5.00 Weight (Pounds): 186 Medications Current Medications Medications (Trade) Dose Ordered Sig/Dee Route PRN Reason Start Time Stop Time Status Last Admin Dose Admin Acetaminophen (Tylenol) 650 mg Q4H PRN ORAL FEVER 08/16/20 11:30 09/15/20 11:29 Acetaminophen (Tylenol) 650 mg Q6H PRN ORAL Mild Pain (Pain Scale 1-3) 08/16/20 11:30 09/15/20 11:29 Cefazolin Sodium 50 ml @ 100 mls/hr Q8H IV 08/16/20 16:00 08/17/20 00:29 Dextrose/ Electrolytes 1,000 ml @ 100 mls/hr Q10H IV 08/16/20 14:00 09/15/20 13:59 Docusate Sodium (Colace) 100 mg TWICE A DAY ORAL 08/16/20 18:00 09/15/20 17:59 Hydromorphone HCl (Dilaudid) 1 mg Q3H PRN IVP pain score 4-6 08/16/20 11:30 08/23/20 11:29 08/16/20 13:13 Ketorolac Tromethamine (Toradol 30mg) 15 mg Q6H PRN IV breakthrough pain 08/16/20 11:30 08/21/20 11:29 Ondansetron HCl (Zofran) 4 mg Q6H PRN IVP Nausea & Vomiting 08/16/20 11:30 09/15/20 11:29 08/16/20 13:08 Temazepam (RestoriL) 7.5 mg DAILYPRN PRN ORAL Insomnia 08/16/20 11:30 08/23/20 11:29 Assessment/Plan Problem List: (1) Hematuria ICD Codes: R31.9 - Hematuria, unspecified SNOMED: 78853239 (2) Pneumonia ICD Codes: J18.9 - Pneumonia, unspecified organism SNOMED: 207528808 (3) ACS (acute coronary syndrome) ICD Codes: I24.9 - Acute ischemic heart disease, unspecified SNOMED: 688008414 (4) Left-sided chest pain ICD Codes: R07.9 - Chest pain, unspecified SNOMED: 193379627 (5) Chest pain ICD Codes: R07.9 - Chest pain, unspecified SNOMED: 01758752 (6) BPH (benign prostatic hyperplasia) ICD Codes: N40.0 - Benign prostatic hyperplasia without lower urinary tract symptoms SNOMED: 356961469 (7) History of hypertension ICD Codes: Z86.79 - Personal history of other diseases of the circulatory system SNOMED: 028206967 (8) Prostate cancer Assessment & Plan: 65M prostate cancer s/p lap radical prostatectomy doing well in recover surgery went well and no complications. close dissection near rectum but no injury good dissection no major bleeding will potentially develop ileus knott to stay in slow diet ambulate and out of bed will follow with recs orders placed will monitor exam clinically thank you ICD Codes: C61 - Malignant neoplasm of prostate SNOMED: 634548587 Tal Delgado Aug 16, 2020 14:43
[2020-08-16 15:02] LABS: HEMATOCRIT 37.7 % (42.0-52.0); HEMOGLOBIN 12.8 G/DL (14.2-18.0); MEAN CORPUSCULAR VOLUME 92 FL (80-99); PLATELET COUNT 177 K/UL (150-450); RED BLOOD COUNT 4.09 M/UL (4.70-6.10); RED CELL DISTRIBUTION WIDTH 11.4 % (11.6-14.8)
[2020-08-16 15:12] LABS: CREATININE 1.4 MG/DL (0.55-1.30)
[2020-08-16] MEDS: ceFAZolin 2gm/50ml Premix 50 ML IV SCH ×2 (16:16→23:34)
[2020-08-16] MEDS: Docusate 100mg cap ORAL SCH (17:27)
--- NOTE | 2020-08-16 19:43 | NUR ---
NURSE HAND-OFF: Important Events on Shift:s/p surgery, pain management, hydration Patient Status: stable Diet: npo Pending Orders: n/a Pending Results/Labs:am labs Pending MD notification:n/a Latest Vital Signs: Temperature 97.6 , Pulse 77 , B/P 131 /79 , Respiratory Rate 20 , O2 SAT 99 , Nasal Cannula, O2 Flow Rate 2.0 . Vital Sign Comment: n/a Latest Hutchinson Fall Score: 35 Fall Risk: Medium Risk Safety Measures: Call light , Side Rails Side Rails x1, Bed position Low and Locked. Fall Precautions: Report given to Anderson Stark.
--- NOTE | 2020-08-16 19:44 | NUR ---
NURSE NOTES: Received report from ARTURO Ambrocio. Patient seen laying in bed. In stable condition. in no apparent distress.
[2020-08-17] VITALS: BP 115/70
[2020-08-17 04:00] VITALS: BP 120/70
[2020-08-17] MEDS: HYDROmorphone 1mg/ml Carpuject IVP PRN ×2 (04:38→12:25)
--- NOTE | 2020-08-17 06:12 | NUR ---
NURSE HAND-OFF: Important Events on Shift: Pain management, patient wanting to eat food and drink water, but still no bowel sounds/ flatus Patient Status: stable Diet: NPO X ice chips and meds Pending Orders: [] Pending Results/Labs:[] Pending MD notification:[] Latest Vital Signs: Temperature 97.7 , Pulse 74 , B/P 120 /70 , Respiratory Rate 20 , O2 SAT 97 , Nasal Cannula, O2 Flow Rate 2.0 . Vital Sign Comment: tapered down o2, Now on Room Air Latest Hutchinson Fall Score: 35 Fall Risk: Medium Risk Safety Measures: Call light Within Reach, Bed Alarm , Side Rails Side Rails x2, Bed position Low and Locked. Fall Precautions: Patient Fall Education Report given to [].
[2020-08-17 06:41] LABS: BASOPHILS % (AUTO) 0.4 % (0.0-2.0); EOSINOPHILS % (AUTO) 0.1 % (0.0-3.0); HEMATOCRIT 35.3 % (42.0-52.0); HEMOGLOBIN 12.1 G/DL (14.2-18.0); LYMPHOCYTES % (AUTO) 13.2 % (20.0-45.0); MEAN CORPUSCULAR VOLUME 91 FL (80-99); MONOCYTES % (AUTO) 9.1 % (1.0-10.0); NEUTROPHILS % (AUTO) 77.2 % (45.0-75.0); PLATELET COUNT 175 K/UL (150-450); RED BLOOD COUNT 3.89 M/UL (4.70-6.10); RED CELL DISTRIBUTION WIDTH 11.1 % (11.6-14.8); WHITE BLOOD COUNT 13.7 K/UL (4.8-10.8)
--- NOTE | 2020-08-17 07:20 | NUR ---
NURSE NOTES: Report given to ARTURO Ambrocio
--- NOTE | 2020-08-17 07:30 | NUR ---
NURSE NOTES: Patient is in bed awake and able to verbalize needs. Stable. Denies pain or SOB. Patient c/o feeling hungry. Patient given teaching regarding diet order. Surgical dressings c/d/i, medial dressing stained. Patient instructed to use call light for assistance, verbalized understanding. All safety measures provided. Patient is in bed in locked and lowest position with call light within reach. All needs met at this time. Will continue to monitor.
[2020-08-17 07:57] LABS: CALCIUM 7.6 MG/DL (8.5-10.1); CREATININE 1.9 MG/DL (0.55-1.30); POTASSIUM 4.1 MMOL/L (3.5-5.1)
[2020-08-17 08:00] VITALS: BP 116/69
--- NOTE | 2020-08-17 08:24 | 48 Hour Post Anesthesia Eval ---
Post Anesthesia Evaluation Procedure: Lparocopic Radical Prostectomy Date of Evaluation: Aug 17, 2020 Time of Evaluation: 08:23 Blood Pressure Systolic: 116 0: 78 Pulse Rate: 72 Respiratory Rate: 18 Temperature (Fahrenheit): 97.6 O2 Sat by Pulse Oximetry: 98 Airway: patent Nausea: No Vomiting: No Pain Intensity: 3 Hydration Status: adequate Cardiopulmonary Status: stable Mental Status/LOC: patient returned to baseline Follow-up Care/Observations: n/a Post-Anesthesia Complications: none Follow-up care needed: N/A Mitch Bolden MD Aug 17, 2020 08:24
[2020-08-17] MEDS: Docusate 100mg cap ORAL SCH ×2 (08:52→18:07)
[2020-08-17] MEDS: D5 1/2NS w/KCl 20mEq 1,000 ML IV SCH (08:54)
--- NOTE | 2020-08-17 09:45 | NUR ---
PT EVALUATION NOTE Patient seen for initial evaluation and treatment initiated. Patient presents with generalized weakness and pain s/p prostatectomy which impairs patient's ability to perform mobility skills safely. Patient performs bed mobility tasks with SBA, transfers with SBA, no AD. Patient able to ambulate 200 ft with CGA, no AD, slightly unsteady however no loss of balance. Patient able to ascend/descend 8 stairs with CGA holding one rail, one mild loss of balance with patient able to recover. Patient will benefit from skilled inpatient PT intervention to increase strength and postural stability for improved level of functional mobility. Anticipate discharge home once medically cleared by MD. No DME needs identified at this time. Addendum: 08/17/20 at 1257 by BRIAN LUIS PT Amended: Links added.
--- NOTE | 2020-08-17 10:28 | Surgery Progress Note ---
Surgery Progress Note Subjective Additional Comments doing well comfortable no n/v labs noted peri correia Objective Last 24 Hour Vital Signs Date Time Temp Pulse Resp B/P (MAP) Pulse Ox O2 Delivery O2 Flow Rate FiO2 08/17/20 09:00 Room Air 08/17/20 08:24 72 18 98 08/17/20 08:00 98.0 73 20 116/69 (85) 98 08/17/20 05:08 97.7 08/17/20 04:00 97.7 74 20 120/70 (87) 97 08/17/20 00:00 97.1 75 20 115/70 (85) 99 08/16/20 21:00 Room Air 08/16/20 20:00 98.2 77 20 118/73 (88) 100 08/16/20 16:00 97.6 77 20 131/79 (96) 99 08/16/20 13:54 97.8 80 20 122/71 (88) 99 08/16/20 13:24 97.9 79 20 123/71 (88) 95 08/16/20 13:00 Nasal Cannula 2.0 08/16/20 12:54 97.8 91 20 122/69 (86) 100 08/16/20 12:31 63 20 133/86 99 08/16/20 12:30 97.8 63 19 133/86 100 Nasal Cannula 3 08/16/20 12:24 97.4 08/16/20 12:20 70 19 126/69 100 Nasal Cannula 3 08/16/20 12:05 70 22 111/66 98 Nasal Cannula 3 08/16/20 12:01 68 25 111/63 100 08/16/20 11:50 60 13 107/54 100 Nasal Cannula 3 08/16/20 11:40 58 12 112/63 100 Simple Mask 6 08/16/20 11:30 60 17 111/57 100 Simple Mask 6 08/16/20 11:25 60 15 110/62 100 Simple Mask 6 08/16/20 11:24 64 16 100 08/16/20 11:23 97.3 63 25 107/63 100 Simple Mask 6 I&O l Intake and Output 08/16/20 08/17/20 19:00 07:00 Intake Total 2600 ml 900 ml Output Total 500 ml 800 ml Balance 2100 ml 100 ml Intake IV Total 2600 ml 900 ml Output Urine Total 300 ml 800 ml Estimated Blood Loss 200 ml Dressing: dry Wound: clean Cardiovascular: RSR Respiratory: clear Abdomen: soft, distended, non-tender, present bowel sounds Extremities: no edema, no tenderness, no cyanosis Laboratory Tests Test 08/16/20 14:30 08/17/20 04:50 White Blood Count 16.0 K/UL (4.8-10.8) H 13.7 K/UL (4.8-10.8) H Red Blood Count 4.09 M/UL (4.70-6.10) L 3.89 M/UL (4.70-6.10) L Hemoglobin 12.8 G/DL (14.2-18.0) L 12.1 G/DL (14.2-18.0) L Hematocrit 37.7 % (42.0-52.0) L 35.3 % (42.0-52.0) L Mean Corpuscular Volume 92 FL (80-99) 91 FL (80-99) Mean Corpuscular Hemoglobin 31.2 PG (27.0-31.0) H 31.1 PG (27.0-31.0) H Mean Corpuscular Hemoglobin Concent 33.8 G/DL (32.0-36.0) 34.3 G/DL (32.0-36.0) Red Cell Distribution Width 11.4 % (11.6-14.8) L 11.1 % (11.6-14.8) L Platelet Count 177 K/UL (150-450) 175 K/UL (150-450) Mean Platelet Volume 8.4 FL (6.5-10.1) 8.5 FL (6.5-10.1) Neutrophils (%) (Auto) % (45.0-75.0) 77.2 % (45.0-75.0) H Lymphocytes (%) (Auto) % (20.0-45.0) 13.2 % (20.0-45.0) L Monocytes (%) (Auto) % (1.0-10.0) 9.1 % (1.0-10.0) Eosinophils (%) (Auto) % (0.0-3.0) 0.1 % (0.0-3.0) Basophils (%) (Auto) % (0.0-2.0) 0.4 % (0.0-2.0) Differential Total Cells Counted 100 Neutrophils % (Manual) 88 % (45-75) H Lymphocytes % (Manual) 7 % (20-45) L Monocytes % (Manual) 5 % (1-10) Eosinophils % (Manual) 0 % (0-3) Basophils % (Manual) 0 % (0-2) Band Neutrophils 0 % (0-8) Platelet Estimate Adequate Platelet Morphology Normal Red Blood Cell Morphology Normal Sodium Level 142 MMOL/L (136-145) 140 MMOL/L (136-145) Potassium Level 4.0 MMOL/L (3.5-5.1) 4.1 MMOL/L (3.5-5.1) Chloride Level 106 MMOL/L (98-107) 105 MMOL/L (98-107) Carbon Dioxide Level 26 MMOL/L (21-32) 22 MMOL/L (21-32) Anion Gap 10 mmol/L (5-15) 13 mmol/L (5-15) Blood Urea Nitrogen 18 mg/dL (7-18) 18 mg/dL (7-18) Creatinine 1.4 MG/DL (0.55-1.30) H 1.9 MG/DL (0.55-1.30) H Estimat Glomerular Filtration Rate 50.7 mL/min (>60) 35.6 mL/min (>60) Glucose Level 147 MG/DL (74-106) H 145 MG/DL (74-106) H Calcium Level 8.0 MG/DL (8.5-10.1) L 7.6 MG/DL (8.5-10.1) L Plan Problems: (1) Hematuria (2) Pneumonia (3) ACS (acute coronary syndrome) (4) Left-sided chest pain (5) Chest pain (6) BPH (benign prostatic hyperplasia) (7) History of hypertension (8) Prostate cancer Assessment & Plan: 65M prostate cancer s/p lap radical prostatectomy doing well in recover surgery went well and no complications. close dissection near rectum but no injury good dissection no major bleeding will potentially develop ileus knott to stay in slow diet ambulate and out of bed will follow with recs orders placed will monitor exam clinically thank you start clears am labs incentive spirometry heparin Tal Delgado Aug 17, 2020 10:27
[2020-08-17 12:00] VITALS: BP 136/82
--- NOTE | 2020-08-17 12:45 | NUR ---
CASE MANAGEMENT:REVIEW 08/17/20 SI:S/P LAPAROSCOPIC RADICAL PROCTECTOMY PROSTATE CANCER 98.0 73 20 116/69 98% ON RA WBC 13.7 CA+7.6 BG 145 CREAT 1.9 IS:IV CEFAZOLIN TID IV FLAGYL TID IV D5/LYTES @100ML/HR IV DILAUDID Q3HR/PRN \: 3E MED SURG UNIT DCP: HOME WHEN STABLE PLAN: START ON CLEAR ADVANCE DIET TOLERATED CONT ENCOURAGE INCENTIVE SPIROMETER NEURO CHECKS F/U PT EVAL AND THERAPY RECOMMENDATION DVT PROPHYLAXIS ENCOURAGE AMBULATION WHEN INSTRUCTED
[2020-08-17] MEDS: ceFAZolin sod 1 GM in D5W 55 ML IVPB SCH ×2 (12:54→21:36)
--- NOTE | 2020-08-17 13:48 | NUR ---
*-* INSURANCE *-* UPDATED CLINICALS AND REVIEWS HAVE BEEN FAXED TO: [employer] Ref# [id number] #[phone] fax# [phone]
[2020-08-17] MEDS ORDERED: VALACYCLOVIR500 MG ORAL (14:04)
[2020-08-17] MEDS ORDERED: POTASSIUM CITRA5 MEQ PO (14:04)
[2020-08-17] MEDS ORDERED: FLOMAX0.4 MG ORAL (14:04)
[2020-08-17 16:00] VITALS: BP 11/86
--- NOTE | 2020-08-17 19:32 | NUR ---
NURSE NOTES: Received report from Lolly MORRIS. Rounding is done. Patient is a/ox4 and denied any pain at this time. No any distress noted and breathing is even and unlabored at this time. IV site is intact. Surgical dressing are c/d/i. Lolly stated that patient already passed gas and presents bowel sounds. [place] is in place and draining to gravity. Bed is on alarm, locked, and lowest position. Call light within reach. All safety measures provided. Will continue to monitor.
--- NOTE | 2020-08-17 19:35 | NUR ---
NURSE HAND-OFF: Important Events on Shift: pain management, antibiotics Patient Status: stable Diet: clear liq Pending Orders: n/a Pending Results/Labs:n/a Pending MD notification:n/a Latest Vital Signs: Temperature 97.8 , Pulse 63 , B/P 11 /86 , Respiratory Rate 20 , O2 SAT 96 , Room Air, O2 Flow Rate . Vital Sign Comment: n/a Latest Hutchinson Fall Score: 35 Fall Risk: Medium Risk Safety Measures: Call light Within Reach, Bed Alarm , Side Rails Side Rails x2, Bed position Low and Locked. Fall Precautions: Patient Fall Education Report given to Jael MORRIS.
[2020-08-17 20:00] VITALS: BP 139/76
[2020-08-18] VITALS: BP 138/76
[2020-08-18 04:00] VITALS: BP 136/79
[2020-08-18] MEDS: ceFAZolin sod 1 GM in D5W 55 ML IVPB SCH (05:10)
--- NOTE | 2020-08-18 07:10 | NUR ---
NURSE HAND-OFF: Important Events on Shift:[Tolerated diet] Patient Status: [stable] Diet: [clear liquid] Pending Orders: [n] Pending Results/Labs:[n] Pending MD notification:[n] Latest Vital Signs: Temperature 97.7 , Pulse 78 , B/P 136 /79 , Respiratory Rate 18 , O2 SAT 96 , Room Air, O2 Flow Rate . Vital Sign Comment: [stable] Latest Hutchinson Fall Score: 35 Fall Risk: Medium Risk Safety Measures: Call light Within Reach, Bed Alarm , Side Rails Side Rails x2, Bed position Low and Locked. Fall Precautions: Patient Fall Education Report given to [Lolly MORRIS].
[2020-08-18 07:12] LABS: BASOPHILS % (AUTO) 0.5 % (0.0-2.0); EOSINOPHILS % (AUTO) 0.5 % (0.0-3.0); HEMATOCRIT 34.4 % (42.0-52.0); HEMOGLOBIN 11.8 G/DL (14.2-18.0); LYMPHOCYTES % (AUTO) 14.5 % (20.0-45.0); MEAN CORPUSCULAR VOLUME 91 FL (80-99); MONOCYTES % (AUTO) 7.2 % (1.0-10.0); NEUTROPHILS % (AUTO) 77.3 % (45.0-75.0); PLATELET COUNT 162 K/UL (150-450); RED CELL DISTRIBUTION WIDTH 11.4 % (11.6-14.8); WHITE BLOOD COUNT 12.1 K/UL (4.8-10.8)
--- NOTE | 2020-08-18 07:13 | NUR ---
NURSE NOTES: Patient is in bed awake and able to verbalize needs. Stable. Denies pain or SOB at this time. Patient instructed to use call light for assistance, verbalized understanding. F/C draining yellow urine. Patient is in bed in locked and lowest position with call light within reach. All needs met at this time. WIll continue to monitor.
[2020-08-18 07:22] LABS: ALBUMIN 3.2 G/DL (3.4-5.0); ALBUMIN/GLOBULIN RATIO 1.1 (1.0-2.7); BILIRUBIN,TOTAL 0.6 MG/DL (0.2-1.0); CALCIUM 7.7 MG/DL (8.5-10.1); CREATININE 1.9 MG/DL (0.55-1.30); POTASSIUM 3.8 MMOL/L (3.5-5.1)
[2020-08-18 08:00] VITALS: BP 134/77
[2020-08-18] MEDS: Docusate 100mg cap ORAL SCH (08:49)
--- NOTE | 2020-08-18 11:14 | NUR ---
NURSE NOTES: leg bag and drainage bag at bedside.
--- NOTE | 2020-08-18 11:47 | Surgery Progress Note ---
Surgery Progress Note Subjective Symptoms: improved, tolerating diet, voiding well, passing flatus, pain decreased Objective Last 24 Hour Vital Signs Date Time Temp Pulse Resp B/P (MAP) Pulse Ox O2 Delivery O2 Flow Rate FiO2 08/18/20 08:01 Room Air 08/18/20 08:00 97.7 81 18 134/77 (96) 96 08/18/20 04:00 97.7 78 18 136/79 (98) 96 08/18/20 00:00 99.0 83 18 138/76 (96) 95 08/17/20 21:00 Room Air 08/17/20 20:00 98.3 86 18 139/76 (97) 95 08/17/20 16:00 97.8 63 20 11/86 (61) 96 08/17/20 12:00 98.7 73 20 136/82 (100) 96 I&O Intake and Output 08/17/20 08/18/20 19:00 07:00 Intake Total 200 ml 1410 ml Output Total 1000 ml 1900 ml Balance -800 ml -490 ml Intake Oral 1200 ml IV Total 200 ml 210 ml Output Urine Total 800 ml 1900 ml Estimated Blood Loss 200 ml # Voids 1 # Bowel Movements 1 Dressing: dry Wound: clean Cardiovascular: RSR Respiratory: clear Abdomen: soft, flat, non-tender, present bowel sounds Extremities: no edema, no tenderness, no cyanosis Laboratory Tests Test 08/18/20 04:50 White Blood Count 12.1 K/UL (4.8-10.8) H Red Blood Count 3.80 M/UL (4.70-6.10) L Hemoglobin 11.8 G/DL (14.2-18.0) L Hematocrit 34.4 % (42.0-52.0) L Mean Corpuscular Volume 91 FL (80-99) Mean Corpuscular Hemoglobin 31.1 PG (27.0-31.0) H Mean Corpuscular Hemoglobin Concent 34.3 G/DL (32.0-36.0) Red Cell Distribution Width 11.4 % (11.6-14.8) L Platelet Count 162 K/UL (150-450) Mean Platelet Volume 7.6 FL (6.5-10.1) Neutrophils (%) (Auto) 77.3 % (45.0-75.0) H Lymphocytes (%) (Auto) 14.5 % (20.0-45.0) L Monocytes (%) (Auto) 7.2 % (1.0-10.0) Eosinophils (%) (Auto) 0.5 % (0.0-3.0) Basophils (%) (Auto) 0.5 % (0.0-2.0) Sodium Level 142 MMOL/L (136-145) Potassium Level 3.8 MMOL/L (3.5-5.1) Chloride Level 106 MMOL/L (98-107) Carbon Dioxide Level 25 MMOL/L (21-32) Anion Gap 11 mmol/L (5-15) Blood Urea Nitrogen 16 mg/dL (7-18) Creatinine 1.9 MG/DL (0.55-1.30) H Estimat Glomerular Filtration Rate 35.6 mL/min (>60) Glucose Level 101 MG/DL (74-106) Calcium Level 7.7 MG/DL (8.5-10.1) L Total Bilirubin 0.6 MG/DL (0.2-1.0) Aspartate Amino Transf (AST/SGOT) 18 U/L (15-37) Alanine Aminotransferase (ALT/SGPT) 14 U/L (12-78) Alkaline Phosphatase 49 U/L (46-116) Total Protein 6.2 G/DL (6.4-8.2) L Albumin 3.2 G/DL (3.4-5.0) L Globulin 3.0 g/dL Albumin/Globulin Ratio 1.1 (1.0-2.7) Plan Problems: (1) Hematuria (2) Pneumonia (3) ACS (acute coronary syndrome) (4) Left-sided chest pain (5) Chest pain (6) BPH (benign prostatic hyperplasia) (7) History of hypertension (8) Prostate cancer Assessment & Plan: 65M prostate cancer s/p lap radical prostatectomy doing well in recover surgery went well and no complications. close dissection near rectum but no injury good dissection no major bleeding will potentially develop ileus knott to stay in slow diet ambulate and out of bed will follow with recs orders placed will monitor exam clinically thank you start clears am labs incentive spirometry heparin adv diet d/c home today rx written leg bag and night bag f/u outpatient Tal Delgado Aug 18, 2020 11:47
[2020-08-18 12:00] VITALS: BP 138/83
--- NOTE | 2020-08-18 12:43 | NUR ---
NURSE NOTES: Patient discharged home as ordered. Stable. Denies pain or SOB. Patient was given thorough discharge instructions by surgeon prior to discharging home. Teaching reinforced by RN, patient verbalized understanding. Patient was given teaching regarding knott leg bag/ drainage bag and knott care. Patient stated that he will fill prescription at home pharmacy. Patient has all belongings. Skin c/d/i. Surgical dressing assessed by surgeon prior to discharge. Patient's arrived to pick patient up. No IV access. Armband removed. Patient assisted downstairs by staff without incident.
--- NOTE | 2020-08-18 12:45 | NUR ---
CASE MANAGEMENT:REVIEW 08/18/20 SI:S/P LAPAROSCOPIC RADICAL PROCTECTOMY PROSTATE CANCER 99.0 100 18 138/83 97% ON RA wbc 12.1 creat 1.9 ca+ 7.7 IS:IV CEFAZOLIN TID IV FLAGYL TID IV D5/LYTES @100ML/HR IV DILAUDID Q3HR/PRN \: 3E MED SURG UNIT DCP: HOME WHEN STABLE PLAN: advance diet reg tolerating diet dc today
--- NOTE | 2020-08-20 14:45 | Discharge Summary ---
Discharge Summary Discharge Summary _ DATE OF ADMISSION: 08/16/2020 DATE OF DISCHARGE: 08/18/2020 Admitting MD: Dr. Baljit Boggs CONSULTANTS: Dr. Tal Delgado BRIEF HOSPITAL COURSE: Patient is a 65-year-old male with prostate cancer, was admitted for a laparoscopic radical prostatectomy. Procedure was performed with general surgeon Dr Delgado. He tolerated procedure well. There was no intraoperative complication. No bowel injury and no requirement for bowel repair. He was given postop care. He was encouraged to ambulate out of bed. Diet was advanced slowly due to potential development of ileus. He was encouraged use of incentive spirometry. He was given Heparin for DVT prophylaxis. Patient was tolerating diet. Diet was advanced. He was voiding well. He was passing flatus. Pain was decreased. Patient was cleared for discharge home. He was given a leg bag and a night bag. Advised to follow-up as outpatient. FINAL DIAGNOSES: Prostate cancer status post laparoscopic radical prostatectomy DISPOSITION: Patient was discharged home. DISCHARGE MEDICATIONS: Refer to Discharge Medication List. DISCHARGE INSTRUCTIONS: Follow-up with in a week. I have been assigned to complete a discharge summary on this account, I was not involved with the patient's management.--TAQUERIA Snell Jacqueline Robles NP Aug 20, 2020 14:45
--- NOTE | 2020-08-20 16:35 | CDS Physician Query ---
Dear Dr. Baljit Boggs M.D. Date: 08/20/20 CDI/CDS Name: Cody Phillip Exercise your independent professional judgment when responding to the query. Questions asked do not imply a particular answer is desired or expected. We greatly appreciate your clarification on this issue. CLINICAL DOCUMENTATION STATES: Patient is a 65-year-old male with prostate cancer, was admitted for a laparoscopic radical prostatectomy. Procedure was performed with general surgeon Dr Delgado. He tolerated procedure well. There was no intraoperative complication. No bowel injury and no requirement for bowel repair." FINAL DIAGNOSES: Prostate cancer status post laparoscopic radical prostatectomy Admitting MD: Dr. Baljit Boggs CLINICAL FINDINGS SHOW: Vitals (08/16): T97.4F, Pulse 64, RR25, Labs(08/16): Hemat WBC 16.0, Neut%88.0 Chem: Glucose 147, Calcium 8.0, Cr. 1.4 Procedure performed: Laparoscopic Radical Prostatectomy Medications: Ketorolac Tromethamine IV (08/16), Acetaminophen 650 PO (08/16-08/18) Please clarify if you mean: [ ] SIRS (Systemic Inflammatory Response Syndrome) [ ] SIRS w/ Organ Dysfunction [ ] Sepsis [ ] Not Applicable [ ] Other Condition Present on Admission: [ ] Yes [ ] No [ ]Clinically Undeterminable Please also document in your Progress Notes and/or Discharge Summary and indicate if the condition was present on admission. MTDD
--- NOTE | 2020-08-21 18:21 | NUR ---
INSURANCE DC SUMMARY FAXED TO [facility] [phone]
--- NOTE | 2020-08-21 22:44 | Operative Note - Dictated ---
DATE OF OPERATION: 08/16/2020 PREOPERATIVE DIAGNOSIS: Prostate cancer. OPERATION: Laparoscopic bladder compression due to prostatectomy. POSTOPERATIVE DIAGNOSIS: Prostate cancer. OPERATED BY: Baljit Boggs M.D. YOUTU[employer] DOCTOR: Tal Delgado M.D. FINDINGS: Enlarged prostate, prostate cancer. INDICATIONS FOR SURGERY: The patient has had elevated PSA and underwent prostate biopsy that showed Leander 7 multifocal prostate cancer. Treatment options were explained to the patient in great length including all potential complications. We went through different options for treatment and he elected to have surgical procedure. All potential complications have been explained and he signed a consent. Brought to the operating room, placed in supine position, prepped and draped in standard fashion. Under general anesthesia, Veress needle was placed. Pneumoperitoneum was created to 18 mmHg and 5 trocars, two 12's and three 5's, were placed in standard positions. After that, dissection was started underneath the bladder mobilizing the seminal vesicles and vas deferens. Dissection through the rectovesical space ended up being very difficult with confusing anatomy of the structures with multiple adhesions and collateral vessels. I decided to abandon the dissection and moved anteriorly to separate the bladder from the pubis. Both the umbilical ligaments were transected exposing the area of the Surjit ligament and . Transversalis fascia was opened with Harmonic Scalpel. Endo-SUMAN was used to dissect the dorsal venous complex. After that, dissection was focused on separation of the prostate and the bladder. The bladder neck was sharply dissected from the prostatic base and incised to the Degroot catheter. Slowly, bladder neck was excised on all sides preserving both seminal vesicles and vas deferens attached to the prostate. Prostate was then sequentially dissected from the neurovascular bundle towards the apex using sharp and blunt dissection with the Harmonic Scalpel. After that, the apex of the prostate was incised with electrocautery and scissors to the urethra. Urethra was transected and prostate removed for pathologic examination. Bleeding was controlled. The urethra was reapproximated to the bladder neck after bladder neck was downsized to allow Vicryl running suture. Urethra was reconnected to bladder neck with running 2-0 Monocryl suture, over 20-Scottish Degroot catheter. Bladder was copiously irrigated with no evidence of leaks. Prostate, seminal vesicle, and additional tissue from the base of the prostate were removed for pathological examination and fascia closed with 0 Vicryl sutures and fernando for the skin. Estimated blood loss was approximately 100 mL. Baljit Boggs M.D. DR: ASTRID JOB#: [id number] CC:
== END 2020-08-18 15:16 | disposition home or self-care (01) | DRG 708 ==
LOC: SDSOVERFLO 05:26 → 3E 12:50
PROC: 0VT04ZZ Resection of Prostate, Percutaneous Endoscopic Approach (ICD-10-PCS; principal; 2020-08-16 07:30)
DX: C61 Malignant neoplasm of prostate (principal); I10 Essential (primary) hypertension; N40.1 Benign prostatic hyperplasia with lower urinary tract symptoms; R35.0 Frequency of micturition; R39.15 Urgency of urination
CPT/HCPCS: 36415; 80048; 80053; 85007; 85025; 86850; 86900; 86901; 87081; 94003; 94150; J2250; J2405; J2710; U0002